=== PATIENT | male | born 1970 | race Caucasian/White ===

== ENCOUNTER 2022-06-12 10:04 | Inpatient (IN) | payer OTHER, SELFPAY ==
[2022-06-12] VITALS (19 sets, daily range): BP systolic 102–129; BP diastolic 66–87; PULSE 59–79; RESP 12–20; TEMP 36.2–36.8; O2SAT 97–100; BMI 29.1
--- NOTE | 2022-06-12 | ECHO_ITS ---
Patient Info Name: Linwood Persaud Age: 52 years : 1970 Gender: Male Ht: 68 in Wt: 193 lbs BSA: 2.07 m2 HR: 57 bpm BP: 125 / 82 mmHg Heart Rhythm: Sinus Rhythm Exam Date: 06/12/2022 2:47 PM Exam Location: [facility] Pulmonary Patient Status: Inpatient Admit Date: 06/12/2022 Staff Ordering Physician: John Beyer MD Back Roll Lathe Operator: Morgan Interiano, LAYLA, RT Attending Provider: Maxi Manzano MD Referring Physician: Pepito LÓPEZ; Exam Type: CA echo doppler w bubble study Study Info Indications - CVA Complete two-dimensional, color flow and Doppler transthoracic echocardiogram is performed. Strain analysis performed. Summary 1. Complete two-dimensional, color flow and Doppler transthoracic echocardiogram is performed. Left Ventricle Left ventricular chamber dimension is normal. Left ventricular systolic function is normal, estimated at 60-65%. There is mild concentric increased left ventricular wall thickness. The left ventricular diastolic function is grade I diastolic dysfunction. Right Ventricle Right ventricular chamber dimension is normal. Left Atria Left atrial chamber dimension is normal. Right Atria Right atrial chamber dimension is mildly enlarged. Atrial Septum Suspected patent foramen ovale visualized by agitated saline imaging. Aortic Valve The aortic valve is trileaflet. There is trace aortic valve regurgitation. Pulmonic Valve The pulmonic valve is normal. There is trace pulmonic regurgitation. Mitral Valve The mitral valve has normal leaflets. Tricuspid Valve The tricuspid valve leaflets are normal. Pericardium/Pleural The pericardium appears normal. Aorta The aortic root size at the sinus of Valsalva is normal. Left Ventricular Outflow Tract Name Value Normal LVOT 2D LVOT Diameter 2.2 cm LVOT Doppler LVOT Peak Gradient 5 mmHg LVOT Mean Gradient 3 mmHg LVOT VTI 24 cm LVOT VTI/AV VTI Ratio 0.9 LVOT Stroke Volume 92 ml LVOT CO 4.4 l/min LVOT CI 2.1 l/min/m2 Mitral Valve Name Value Normal MV Doppler MV Decel Stoddard 162 cm/s2 MV PHT 60 ms MV Area (PHT) 3.7 cm2 4.0-5.0 MV Diastolic Function MV E Peak Velocity 33 cm/s MV A Peak Velocity 38 cm/s MV E/A 0.9 MV Decel Time 206 ms MV Annular TDI MV E/e'
--- NOTE | ~2022-06-12 | US_ITS ---
Procedure: Duplex Doppler examination of the bilateral carotids. Indication: CVA Technique: Real time, color-flow and pulse wave Doppler examination of the bilateral carotids was performed. Findings: Jules scale ultrasonography of the right neck demonstrated no significant plaque. There was demonstrat ion of normal color-flow and Doppler waveforms within the right common, internal and external carotid arteries. The peak systolic velocities in the right common, internal and external carotid arteries w ere demonstrated to be 122 cm/sec, 87 cm/sec and 158 cm/sec respectively. The right ICA/CCA ratio was 0.7.The proximal right internal carotid artery demonstrates 0% stenosis relative to the normal dista l artery lumen diameter. Jules scale sonography of the left neck demonstrated no significant plaque. There was demonstration of normal color-flow and wave forms within the left common, internal and external carotid arteries. The peak systolic velocities in the left common, internal and external carotid arteries were demonstrate d to be 151cm/sec, 135 cm/sec and 192 cm/sec respectively. The left ICA/CCA ratio was 1.0. The proxim al left internal carotid artery demonstrates 0% stenosis relative to the normal distal artery lumen d iameter. There was antegrade flow demonstrated in the bilateral vertebral arteries. Impression: No hemodynamically significant stenosis of the bilateral internal carotid arteries. Antegrade flow in the bilateral vertebral arteries. Note: The methodology used is an indirect measurement validated against a direct method (such as the NASCET criteria) that compares diameters at the stenosis to the distal ICA. Reviewed, dictated and finalized at [facility]. Impression: No hemodynamically significant stenosis of the bilateral internal carotid arter ies. Antegrade flow in the bilateral vertebral arteries. Note: The methodology used is an indirect measurement validated against a direct meth od (such as the NASCET criteria) that compares diameters at the stenosis to the distal ICA.
--- NOTE | ~2022-06-12 | MR_ITS ---
EXAMINATION: MR brain/brain stem wo/w con DATE: 06/12/2022 12:59 INDICATION: Cerebrovascular accident. Left facial weakness. TECHNIQUE: Magnetic resonance imaging (MRI) of the brain and brainstem was performed without and with 18 mL MultiHance intravenous contrast. COMPARISON: Brain MRI 09/19/2010, head CT 06/12/2022 FINDINGS: There is a small acute infarct in the right thalamus characterized by decreased ADC and mil dly increased T2-weighted signal intensity. There is no intracranial hemorrhage or abnormal mass lesi on. The ventricles are normal in size. The paranasal sinuses are clear. The orbits are normal. The ma stoid air cells are normal. IMPRESSION: 1. Small acute infarct in the right thalamus. Reviewed, dictated and finalized at location A.
--- NOTE | ~2022-06-12 | CT_ITS ---
EXAMINATION: CTA brain carotid DATE: 06/12/2022 10:49 INDICATION: Slurred speech. TECHNIQUE: Computed tomographic angiography (CTA) of the head was performed without and with 200 mL O mnipaque-350 intravenous contrast. CTA of the neck was performed with intravenous contrast. Automated exposure control and iterative reconstruction technique were employed. The dose-length product was 1 869.29 mGy-cm. Maximum intensity projection and volume rendered 3D-reconstructions were created by azalea cain technologist on a separate workstation. COMPARISON: None. FINDINGS: HEAD CTA: There is no intracranial hemorrhage, acute infarction, or abnormal intracranial mass lesion . The ventricles are normal in size. There is mild mucosal thickening in the paranasal sinuses. The m astoid air cells are normal. The orbits are normal. The vertebral arteries are codominant. There is n o significant stenosis of basilar artery or the posterior cerebral arteries. The posterior communicat ing arteries are normal. There is no significant stenosis of the intracranial internal carotid arteri es or anterior or middle cerebral arteries. Anterior communicating artery is normal. There is no aneu rysm. There are reconstruction plate involving the facial bones bilaterally. NECK CTA: There are no pathologically enlarged lymph nodes. There is no significant stenosis of the v ertebral arteries. There is no visible plaque in the proximal internal carotid arteries. There is 0% stenosis of the proximal right internal carotid artery relative to normal distal artery lumen diamete r (NASCET criteria). There is 0% stenosis of the proximal left internal carotid artery relative to no rmal distal artery lumen diameter. IMPRESSION: 1. Normal brain. No aneurysm or significant intracranial arterial stenosis. 2. 0% stenosis of the proximal internal carotid arteries relative to normal distal artery lumen diame ters (NASCET criteria). Reviewed, dictated and finalized at location A. IMPRESSION: 1. Normal brain. No aneurysm or significant intracranial arterial stenosis. 2. 0% stenosis of the proximal internal carotid arteries relative to normal dis chito artery lumen diameters (NASCET criteria).
--- NOTE | ~2022-06-12 | XR_ITS ---
EXAMINATION: XR chest 1V portable DATE: 06/12/2022 11:46 INDICATION: Cerebral vascular accident. TECHNIQUE: A single frontal view of the chest was obtained. COMPARISON: None. FINDINGS: The chest demonstrates clear lungs without pneumonia, pleural effusion, or pneumothorax. Th e heart size is normal. IMPRESSION: 1. No acute cardiopulmonary disease. Reviewed, dictated and finalized at location A.
--- NOTE | 2022-06-12 10:10 | ECG_ITS ---
Measurements Intervals [place] Rate: 66 P: 34 MI: 176 QRS: 2 QRSD: 101 T: 8 QT: 386 QTc: 407 Interpretive Statements SINUS RHYTHM BASELINE ARTIFACT- I, II, III, AVR NORMAL ECG NO PREVIOUS ECG AVAILABLE FOR COMPARISON Electronically Signed On 06-12-2022 13:40:47 CDT by Carroll Aquino D.O.
--- NOTE | 2022-06-12 10:30 | ED.NEUROSD ---
HPI - Neuro Symptoms/Deficit General Chief Complaint: Suspected CVA Stated Complaint: woke up with stroke symptoms Time Seen by Provider: 06/12/22 10:14 History of Present Illness HPI Narrative: Patient is a 52-year-old male who presents ER with concerns for strokelike symptoms. Last known well was 3 AM this morning. He then went to bed. Woke up at 8:30 AM. Since waking up she has been having left-sided weakness in his face. If he tries to drink fluid falls out of his mouth. He also reports he has had trouble seeing since waking up as he feels like his vision is either blurred or double. Denies any absent vision. He reports when he ambulates he is falling to his right side. He has mild speech disturbance. No focal weakness of an arm or leg. No history of CVA. He is on no blood thinners. Patient reports his vision improves when he closes 1 eye or the other but it is worsened when both eyes are open. Related Data Allergies Allergy/AdvReac Type Severity Reaction Status Date / Time No Known Allergies Allergy Verified 06/12/22 11:08 Review of Systems Review of Systems: All systems reviewed & are unremarkable except as noted in HPI and below Constitutional: Constitutional: Denies chills and Denies fever(s) Eyes: Eyes: Denies blind spots, Reports blurry vision and Denies loss of peripheral vision Cardiovascular: Cardiovascular: Denies chest pain and Denies radiating jaw, neck or arm pain Gastrointestinal: Gastrointestinal: Denies abdominal pain, Denies nausea and Denies vomiting Musculoskeletal: Musculoskeletal: Reports abnormal gait and Denies joint swelling Neurologic: Reports Abnormal speech present, Reports abnormal gait, Denies headache(s), Reports lack of coordination and Reports focal weakness (Left facial droop) [facility] Past Medical History Medical History (Updated 06/12/22 @ 14:06 by John Beyer MD) Anxiety Hematoma and contusion Resolving s/p intramuscular injection Hypogonadism in male Insomnia Long-term current use of testosterone replacement therapy Sleep disorder Surgical History Surgical History (Updated 06/12/22 @ 14:00 by Darling Rodriguez NP) H/O oral surgery H/O shoulder surgery Right 02/2021 History of nasal surgery Family History Family History (Updated 06/12/22 @ 14:01 by Darling Rodriguez NP) Mother Heart disease CHF Father Cerebrovascular accident Acute myocardial infarction Heart disease Parkinsons disease Social History Social History Social History: 4 c [employer] 2-3 times a week Smoking status: Never smoker Alcohol intake: current Alcohol use details: socially Exam Narrative: GENERAL: Well-appearing, well-nourished, and in no acute distress. HEAD: Normocephalic, atraumatic. EYES: PERRL and EOMI. ENT: Mucous membranes moist. Normal posterior oropharynx. NECK: Supple. No carotid bruit. CHEST: Clear to auscultation. No respiratory distress. HEART: Regular rate and rhythm. Normal peripheral pulses. ABDOMEN: Soft, nontender, nondistended. EXTREMITIES: Normal range of motion. No edema. SKIN: Warm, dry, no rash. NEURO: Alert and oriented x3. Left facial weakness. Mild dysarthria. Difficulty with finger-nose testing in the right upper extremity. Slight pronation of left upper extremity. No lower extremity drift. No sensory deficit to the face or extremities. Patient reports blurred vision but no loss of vision. PSYCH: Normal mood and affect. Course Course Emergency Course: I been in contact with the stroke team at [facility] regarding the patient's symptoms. Patient's history would indicate he is outside of the window for tPA however there is a small chance hyperacute MRI may allow patient to receive tPA. I discussed with radiology possibility of obtaining MRI which we can. Unfortunately MRI shows the infarct in both the diffusion study and the flair study. Due to this
[2022-06-12 10:32] LABS: Estimated CRCL calculation 61 ml/min; Estimated Glomerular Filt Rate > 60
[2022-06-12 10:59] LABS: Glucose Point of Care 89 mg/dl (65-105)
[2022-06-12 11:03] LABS: Basophils Percent Auto 0.7 % (0.2-1.2); Eosinophils Absolute Auto 0.3 K/mm3 (0-0.3); Eosinophils Percent Auto 5.7 % (0-4.4); Hematocrit 43.9 % (42.0-52.0); Hemoglobin 15.1 g/dL (14.0-18.0); Immature Granulocyte Absolute 0.01 K/mm3 (0.00-0.031); Immature Granulocyte Percent A 0.2 % (0-0.5); Lymphocytes Absolute Auto 1.36 K/mm3 (0.9-3.2); Lymphocytes Percent Auto 31.2 % (18.3-44.2); Mean Corpuscular HGB Conc 34.4 g/dl (32-36); Mean Corpuscular Hemoglobin 31.3 pg (26-34); Mean Corpuscular Volume 90.9 fl (80-100); Mean Platelet Volume 9.5 fl (7.4-10.4); Monocytes Absolute Auto 0.4 K/mm3 (0.1-0.6); Monocytes Percent Auto 8.5 % (2.6-8.5); Neutrophils Absolute Auto 2.3 K/mm3 (1.3-6.7); Neutrophils Percent Auto 53.7 % (45.5-73.1); Platelet Count Result 220 k/mm3 (150-375); Red Blood Count 4.83 M/mm3 (4.6-6.20); Red Cell Distribution Width 12.5 % (11.5-14.5); White Blood Count 4.4 K/mm3 (4.5-10.0)
[2022-06-12 11:12] LABS: INR 1.1; Prothrombin Time 13.5 Seconds (11.1-14.7)
[2022-06-12 11:13] LABS: Partial Thromboplastin Time 27.7 SECONDS (22.3-36.8)
[2022-06-12 11:14] LABS: Alanine Aminotransferase 32 U/L (6-50); Albumin Level 3.8 g/dL (3.5-5.1); Alkaline Phosphatase 45 U/L (38-126); Anion Gap 3 mmol/L (8-16); Aspartate Amino Transferase 34 U/L (17-59); Bilirubin,Total 0.7 mg/dL (0.2-1.3); Blood Urea Nitrogen 20 mg/dL (9-20); Calcium 8.5 mg/dL (8.4-10.2); Carbon Dioxide 30 mmol/L (22-30); Chloride 100 mmol/L (98-107); Estimated CRCL calculation 66 ml/min; Estimated Glomerular Filt Rate > 60; Glucose 89 mg/dL (65-110); Sodium 133 mmol/L (137-145)
[2022-06-12 11:25] LABS: Troponin I < 0.012 ng/mL (0.000-0.034)
--- NOTE | 2022-06-12 12:02 | PC.NURSE ---
RN performs a the pre MRI screening and pt changes into underwear and gown on own power without issues. Pt then voids and is ready for MRI.
[2022-06-12] MEDS: ASPIRIN 81 MG CHEWABLE TABLET 324 MG PO (13:21)
--- NOTE | 2022-06-12 13:58 | PM.IMHP ---
H&P: HPI History of Present Illness Date/Time: 06/12/22 13:58 Chief Complaint: Suspected CVA Narrative: This is a 52-year-old male patient who has no significant medical history except for sleep walking. The patient came in to be evaluated for stroke-like symptoms today. The last known normal was around 3:00 a.m. this morning. This is when he went to bed. He woke up at 8:30 a.m. this morning. He noticed some left-sided weakness on his face and he was having difficulty drinking fluid as it was just falling out of his mouth. The patient was having difficulty with his vision today. His vision was blurred and he could not read. If he covered 1 eye he was able to read. The patient stated that he did not have double vision. No history of CVA. He has no prescribed anticoagulation. The patient was also having slurred speech. Chest x-ray was read as no acute cardiopulmonary disease. Head neck CTA was read as?Normal brain. No aneurysm or significant intracranial arterial stenosis. 2. 0% stenosis of the proximal internal carotid arteries relative to normal distal artery lumen diameters (NASCET criteria). Brain MRI was read as small acute infarct in the right thalamus. Neurology has been consulted. The patient was given aspirin. The patient was admitted to inpatient status on the date of service of 06/12/2022 Review of Systems Review of Systems: All systems reviewed & are unremarkable except as noted in HPI and below Constitutional: Constitutional: Reports as per HPI and Reports no additional constitutional complaints Eyes: Eyes: Reports as per HPI and Reports no additional eye complaints ENT: Reports system reviewed and no additional complaints, except as documented and Reports Normal hearing present Cardiovascular: Cardiovascular: Reports no additional cardiovascular complaints Respiratory: Respiratory: Reports no additional respiratory complaints and Reports no additional respiratory complaints Gastrointestinal: Gastrointestinal: Reports as per HPI and Reports no additional gastrointestinal complaints Musculoskeletal: Musculoskeletal: Reports no additional musculoskeletal complaints Integumentary/Breasts: Skin/Breast: Reports system reviewed and no additional complaints, except as docu and Reports as per HPI Neurologic: Reports system reviewed and no additional complaints, except as documented, Reports as per HPI and Reports Normal hearing present Psychiatric: Psychiatric: Reports no additional psychiatric complaints and Reports as per HPI Endocrine: Endocrine: Reports no additional endocrine complaints Hematologic/Lymphatic: Hematologic/Lymphatic: Reports no additional hematologic/lymphatic complaints Allergic/Immunologic: Allergic/Immunologic: Reports no additional allergic/immunologic complaints [facility] Past Medical History Medical History Anxiety Hematoma and contusion Resolving s/p intramuscular injection Hypogonadism in male Insomnia Long-term current use of testosterone replacement therapy Sleep disorder Surgical History Surgical History H/O oral surgery H/O shoulder surgery Right 02/2021 History of nasal surgery Family History Family History Mother Heart disease CHF Father Cerebrovascular accident Acute myocardial infarction Heart disease Parkinsons disease Social History Social History (Updated 06/12/22 @ 16:17 by Darling Rodriguez NP) Social History: He is and has 4 children. 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 He drinks alcohol approximately 3-4 times a week. 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 Code status full code Smoking status: Never smoker Alcohol intake: current Drinks per week: 3 Alcohol use details: socially Substance use type: does not use Lack of Transportation: No [place]
--- NOTE | 2022-06-12 15:07 | PC.NURSE ---
Pt is reapplied to heart monitor after ultra sound is finished. Pt requested a meal and RN brings pt a sandwich and water. Pt's facial droop and weakness on the left side have improved. Pt has no complaints at this time. RN leaves call light with pt.
--- NOTE | 2022-06-12 15:25 | ADMGEN ---
This patient, Linwood Persaud, was admitted to Medical Room 253-01. Patient/family oriented to hospital policies and general routines including ID bracelet, bed and alarms, visiting hours, pain management, procedures, bathroom and other care routines, personal items, smoking policy, room service/diet, and visiting hours. Information on how to activate the Rapid Response Team has been discussed. Patient/Family are encouraged to report perceived risks to care and to ask questions if they do not understand what they are told or what they should do.
[2022-06-12] MEDS: clonazePAM (*CRX) 0.5 MG TABLET 1.5 MG PO (22:59)
[2022-06-13] VITALS (7 sets, daily range): BP systolic 112–122; BP diastolic 64–75; PULSE 72–82; RESP 19–20; TEMP 36.3–36.9; O2SAT 98–99
[2022-06-13 05:40] LABS: Basophils Absolute Auto 0.1 K/mm3 (0.0-0.1); Basophils Percent Auto 0.8 % (0.2-1.2); Eosinophils Absolute Auto 0.4 K/mm3 (0-0.3); Eosinophils Percent Auto 5.7 % (0-4.4); Hematocrit 45.6 % (42.0-52.0); Hemoglobin 15.5 g/dL (14.0-18.0); Immature Granulocyte Absolute 0.01 K/mm3 (0.00-0.031); Immature Granulocyte Percent A 0.2 % (0-0.5); Lymphocytes Absolute Auto 2.57 K/mm3 (0.9-3.2); Lymphocytes Percent Auto 39.4 % (18.3-44.2); Mean Corpuscular Volume 91.2 fl (80-100); Mean Platelet Volume 9.8 fl (7.4-10.4); Monocytes Absolute Auto 0.6 K/mm3 (0.1-0.6); Monocytes Percent Auto 8.4 % (2.6-8.5); Neutrophils Percent Auto 45.5 % (45.5-73.1); Platelet Count Result 245 k/mm3 (150-375); Red Cell Distribution Width 12.4 % (11.5-14.5); White Blood Count 6.5 K/mm3 (4.5-10.0)
[2022-06-13 06:00] LABS: Alanine Aminotransferase 34 U/L (6-50); Albumin Level 3.8 g/dL (3.5-5.1); Alkaline Phosphatase 46 U/L (38-126); Anion Gap 5 mmol/L (8-16); Aspartate Amino Transferase 35 U/L (17-59); Bilirubin,Total 0.5 mg/dL (0.2-1.3); Blood Urea Nitrogen 17 mg/dL (9-20); Calcium 8.6 mg/dL (8.4-10.2); Carbon Dioxide 30 mmol/L (22-30); Chloride 102 mmol/L (98-107); Estimated CRCL calculation 80 ml/min; Estimated Glomerular Filt Rate > 60; Glucose 94 mg/dL (65-110); Magnesium 1.9 mg/dL (1.6-2.3); Sodium 137 mmol/L (137-145)
[2022-06-13 06:46] LABS: Thyroid Stimulating Hormone Reflex 0.613 uIU/mL (0.465-4.68)
[2022-06-13] MEDS: ASPIRIN 81 MG ENTERIC TABLET PO (08:05)
[2022-06-13 08:13] LABS: Cholesterol 168 mg/dL (0-200); HDL Direct 36 mg/dL; Triglycerides 102 mg/dL (<150)
[2022-06-13 08:24] LABS: LDL Cholesterol Direct 101 mg/dL
--- NOTE | 2022-06-13 08:59 | WPDNEURCNPN ---
Assessment and Plan Assessment and plan (1) Acute CVA (cerebrovascular accident): Code(s): I63.9 - Cerebral infarction, unspecified Status: Acute (2) Hyperlipidemia: Code(s): E78.5 - Hyperlipidemia, unspecified Status: Acute Plan Linwood Persaud is a 52 year old male with a history of anxiety and hypogonadism presenting due to concerns for stroke. He presented with left facial droop. Found to have right thalamic infarct. Other than hyperlipidemia, he does not have any other obvious risk factors for stroke. However, there is family history of genetic hyperocoagulability. - Will check hypercoag labs - Surface echo is pending - Take aspirin 81mg daily, add Plavix for 3 weeks - Continue Lipitor 40mg daily Consult date: 06/13/22 Reason for consult: Stroke HPI: Linwood Persaud is a 52 year old male with a history of anxiety and hypogonadism presenting due to concerns for stroke. Patient's last known well was on 06/12 at 3AM, which is when he went to sleep. When he woke up at 830AM, he noted weakness of the left side of his face, as well as vision changes and falling to the right side. When he presented to [place] ED, he was in sinus rhythm. His blood pressure has been within normal range. CT head was negative for acute process and CTA brain/carotid was negative for stenosis or occlusion. Case was discussed with [facility] Neurology who recommend hyperacute MRI to see if patient would be tPA candidate -- however, acute infarct was noted in both the diffusion and flair sequences. Therefore, patient was not a candidate for tPA. MRI brain showed acute stroke in the right thalamus. Patient's LDL is 101. He was started on aspirin and Lipitor 40mg daily. Patient reports a family history of clotting disorder in remote family members (lipoprotein A). Patient does not smoke and is quite active. He has no complaints today other than a mild headache. He is back to his baseline. Review of Systems Constitutional: Constitutional: Reports no additional constitutional complaints Eyes: Eyes: Reports blurry vision ENT: Reports system reviewed and no additional complaints, except as documented Cardiovascular: Cardiovascular: Reports no additional cardiovascular complaints Respiratory: Respiratory: Reports no additional respiratory complaints Gastrointestinal: Gastrointestinal: Reports no additional gastrointestinal complaints Genitourinary: Genitourinary: Reports no additional male genitourinary complaints Musculoskeletal: Musculoskeletal: Reports no additional musculoskeletal complaints Integumentary/Breasts: Skin/Breast: Reports system reviewed and no additional complaints, except as docu Neurologic: Reports as per HPI Psychiatric: Psychiatric: Reports no additional psychiatric complaints PMFSH Past Medical History Medical History Anxiety Hematoma and contusion Resolving s/p intramuscular injection Hypogonadism in male Insomnia Long-term current use of testosterone replacement therapy Sleep disorder Surgical History Surgical History H/O oral surgery H/O shoulder surgery Right 02/2021 History of nasal surgery Family History Family History Mother Heart disease CHF Father Cerebrovascular accident Acute myocardial infarction Heart disease Parkinsons disease Social History Social History Social History: He is and has 4 children. 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 He drinks alcohol approximately 3-4 times a week. 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 Code status full code Smoking status: Never smoker Alcohol intake: current Drinks per week: 3 Alcohol use details: socially Substance use type: does not use Lack of Transportation: No Lack of Food: Never T
--- NOTE | 2022-06-13 09:07 | PCPTNOTE ---
Pt and RN report pt being independent in the hallway/room. Hospitalist in agreement in cancelling PT/OT orders. RN aware
[2022-06-13] MEDS: ATORVASTATIN 40 MG TABLET PO (09:11)
--- NOTE | 2022-06-13 12:31 | PM.DS ---
DS: Admitting Diagnosis Discharge Date 06/13/22 Admitting Diagnosis CVA DS: Discharge Diagnosis Discharge Diagnosis (1) Acute CVA (cerebrovascular accident): Code(s): I63.9 - Cerebral infarction, unspecified Status: Acute (2) Sleep disorder: Code(s): G47.9 - Sleep disorder, unspecified Status: Acute (3) Hypogonadism in male: Code(s): E29.1 - Testicular hypofunction Status: Acute DS: Summary Hospital Course Reason for hospitalization: CVA Hospital Course: This is a 52-year-old male with history of anxiety and hypogonadism taking testosterone presenting to the ED with chief complaint of facial drooping, slurred speech and left-sided blurred vision. CTA of the head and neck revealed no aneurysm or significant intracranial artery stenosis with 0% stenosis of the proximal internal carotid arteries. MRI performed revealed small acute infarct in the right thalamus. Neurology consulted and recommend patient be started on the new Lipitor 40 mg, Plavix for 3 weeks and aspirin 81 mg. Carotid Dopplers with 0% stenosis. Echocardiogram. patient does have family history of genetic hypercoagulability and hypercoagulable panel has been ordered. Patient high lipid panel revealed LDL of 101. patient is back to baseline with only complaint being mild headache. I have discussed this case with Neurology and they have cleared patient for discharge. Advised patient follow-up with neurology regarding hypercoagulability labs. Time Spent with Patient Time attestation: Total time spent providing and/or coordinating discharge services: Exam Narrative: GENERAL: Comfortable, no acute distress HENMT: moist mucous membranes EYES: EOM intact b/l NECK: no lymphadenopathy RESPIRATORY: clear to auscultation CARDIO: RRR GI: soft, nontender, bowel sounds present SKIN: no rashes EXTREMITIES: no edema, redness or tenderness NEURO: face is symmetric, upper and lower extremity strength 5/5 bilaterally, normal speech DS: Data Data Completed and Pending Labs on day of discharge: Labs from last 24 hours 06/13/22 06/13/22 06/13/22 05:07 05:07 05:07 WBC 6.5 RBC 5.00 Hgb 15.5 Hct 45.6 MCV 91.2 MCH 31.0 MCHC 34.0 RDW 12.4 Plt Count 245 MPV 9.8 Immature Gran % (Auto) 0.2 Neut % (Auto) 45.5 Lymph % (Auto) 39.4 Cache % (Auto) 8.4 Eos % (Auto) 5.7 H Baso % (Auto) 0.8 Lymph # (Auto) 2.57 Cache # (Auto) 0.6 Eos # (Auto) 0.4 H Baso # (Auto) 0.1 Abs Immat Gran (auto) 0.01 Absolute Neuts (auto) 3.0 Absolute Nucleated RBC 0.0 Nucleated RBC % 0.0 Sodium 137 Potassium 4.0 Chloride 102 Carbon Dioxide 30 Anion Gap 5 L BUN 17 Creatinine 0.90 Estim Creat Clear Calc 80 Estimated GFR > 60 Glucose 94 Calcium 8.6 Magnesium 1.9 Total Bilirubin 0.5 AST 35 ALT 34 Alkaline Phosphatase 46 Total Protein 6.0 L Albumin 3.8 Triglycerides Cholesterol LDL Cholesterol Direct HDL Direct TSH (Reflex) 0.613 06/13/22 05:05 WBC RBC Hgb Hct MCV MCH MCHC RDW Plt Count MPV Immature Gran % (Auto) Neut % (Auto) Lymph % (Auto) Cache % (Auto) Eos % (Auto) Baso % (Auto) Lymph # (Auto) Cache # (Auto) Eos # (Auto) Baso # (Auto) Abs Immat Gran (auto) Absolute Neuts (auto) Absolute Nucleated RBC Nucleated RBC % Sodium Potassium Chloride Carbon Dioxide Anion Gap BUN Creatinine Estim Creat Clear Calc Estimated GFR Glucose Calcium Magnesium Total Bilirubin AST ALT Alkaline Phosphatase Total Protein Albumin Triglycerides 102 Cholesterol 168 LDL Cholesterol Direct 101 HDL Direct 36 TSH (Reflex) Discharge Plan Discharge Attending physician on discharge: Aashish Castrejon Consulting providers: Danielle Gonzalez Discharging Clinician: Nimisha Laird Patient Disposition: Home, Self-Care Activity:
[2022-06-17 12:43] LABS: Homocysteine 8.3 umol/L (<11.4)
[2022-06-17 21:27] LABS: Antithrombin III Activity 124 % normal (80-135)
[2022-06-18 05:26] LABS: Anti Cardio Antibody IgM 2.5 MPL-U/mL (<20.0); Anti Cardiolipin Antibody IgA <2.0 APL-U/mL (<20.0); Anti Cardiolipin Antibody IgG <2.0 GPL-U/mL (<20.0)
[2022-06-19 04:03] LABS: Lupus dRVVT Screen 35 sec (<=45); PTT-LA Screen 30 sec (<=40)
[2022-06-21 23:26] LABS: Factor V (Leiden) Mutation NEGATIVE
[2022-06-23 06:51] LABS: Lipoprotein A 226 nmol/L (<75)
== END 2022-06-13 16:52 | disposition home or self-care (01) | DRG 66 ==
LOC: ANHED 10:59 → ANH2MED 14:06
PROVIDERS: Nurse Practitioner; Student in an Organized Health Care Education/Training Program; Admitting Provider Family Medicine; Emergency Provider Emergency Medicine; PCP Internal Medicine; Visit Provider Internal Medicine Critical Care Medicine
DX: I63.9 Cerebral infarction, unspecified (principal); R47.81 Slurred speech; R29.810 Facial weakness; H53.8 Other visual disturbances; R29.704 NIHSS score 4; G47.9 Sleep disorder, unspecified; E29.1 Testicular hypofunction; F41.9 Anxiety disorder, unspecified; E78.5 Hyperlipidemia, unspecified
CPT/HCPCS: 36415; 70496; 70498; 70553; 71045; 80053; 80061; 81240; 81241; 82948; 83090; 83695; 83735; 84443; 84484; 85025; 85300; 85303; 85306; 85610; 85613; 85730; 86146; 92522; 93005; 93306; 93880; 96375; 99285; A9270; A9577; Q9967

== ENCOUNTER 2022-09-09 01:19 | Day surgery (SDC) | payer OTHER, SELFPAY ==
[2022-09-08 12:57] VITALS: BMI 29.1
[2022-09-09] VITALS (10 sets, daily range): BP systolic 106–131; BP diastolic 50–87; PULSE 63–70; RESP 10–18; TEMP 36.4; O2SAT 97–100; BMI 29.1
--- NOTE | 2022-09-09 10:47 | WPDHPUPDATE1 ---
History and Physical Update Update Date/Time: 09/09/22 10:47 History and Physical has been reviewed, including an updated exam of the patient. There are NO changes in the patient's condition. Risks, benefits, and alternatives have been discussed and questions answered. Patient agrees to proceed with procedure.
--- NOTE | 2022-09-09 10:47 | WPDMODSED ---
Moderate Sedation Note-Pt Data Patient Data Diagnosis: CVA, PFO Present Complaint: PFO Procedure to be performed/Plan: Transesophageal Echocardiogram Allergies Allergy/AdvReac Type Severity Reaction Status Date / Time No Known Allergies Allergy Verified 09/09/22 09:27 Home Medications Medication Instructions Recorded Confirmed Type syringe with needle 3 mL 21 gauge #12 ea 01/21/22 06/12/22 Rx x 1 (BD Luer-Anders Syringe) aspirin 81 mg tablet,delayed 81 mg PO QAM #90 tabs 06/13/22 09/08/22 Rx release clonazepam 1 mg tablet 1.5 mg PO QHS #135 tabs 07/31/22 09/08/22 Rx testosterone enanthate 200 mg/mL 200 mg IM WEEKLY #13 mL 07/31/22 09/08/22 Rx intramuscular oil Co Q-10 1 tab-cap PO DAILY 08/26/22 09/08/22 History atorvastatin 80 mg tablet 40 mg PO HS 08/26/22 09/08/22 History multivitamin 1 tablet PO DAILY 08/26/22 09/08/22 History niacin 1 tab-cap PO Q12H 08/26/22 09/08/22 History omega-3 fatty acids-vitamin E 4 cap PO DAILY 08/26/22 09/08/22 History 1,000 mg capsule Sedation/Anesthesia: No previous sedation/anesthesia problems (including family history). [facility] Past Medical History Medical History Anxiety Hematoma and contusion Resolving s/p intramuscular injection Hypogonadism in male Insomnia Long-term current use of testosterone replacement therapy Sleep disorder Surgical History Surgical History H/O oral surgery H/O shoulder surgery Right 02/2021 History of nasal surgery Family History Family History Mother Heart disease CHF Father Cerebrovascular accident Acute myocardial infarction Heart disease Parkinsons disease Social History Social History Social History: He is and has 4 children. 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 He drinks alcohol approximately 3-4 times a week. His is the durable power compliance attorney for healthcare. Code status full code Smoking packs per day: 0 Smoking cigarettes per day: 0.0 Smoking status: Never smoker Alcohol intake: current Drinks per week: 8 Alcohol use details: approx 8 drinks per week. Substance use: never Substance use type: does not use Lack of Transportation: No Lack of Food: Never True Current Housing: I Have Housing Concerned About Future Housing: No Difficulty Paying Gas/Electric Bills: No Difficulty Paying for Meds: No Currently Unemployed: No Education: Bachelor's Degree Difficulty w/ Childcare or Family Care: No Living arrangements: with family Additional living arrangements comments: lives w/ and kids Spiritual care concerns: No Mod Sed Physical Exam Physical Exam Pre Procedural Exam: Normal: Appearance, Lungs, Heart Rate, Heart Rhythm, Neuro Exam, Abdomen, Extremities and Skin Hours since solid foods: 12 Hours since liquid intake: 8 Mallampati Classification: class III Internal Medicine - PN: Obj Da Vital Signs Vital Signs: Vital Signs - 24 hr 09/09/22 09:29 09/09/22 10:15 09/09/22 10:20 Temperature 36.4 C Pulse Rate 70 65 67 Respiratory Rate 18 12 11 L Blood Pressure 115/79 119/87 120/78 Pulse Oximetry 98 100 100 Oxygen Delivery Room Air Nasal Cannula Nasal Cannula Oxygen Flow Rate 3 3 09/09/22 10:25 09/09/22 10:30 09/09/22 10:35 Temperature Pulse Rate 65 64 63 Respiratory Rate 12 11 L 10 L Blood Pressure 114/70 115/75 106/83 Pulse Oximetry 97 99 99 Oxygen Delivery Nasal Cannula Nasal Cannula Nasal Cannula Oxygen Flow Rate 3 3 3 ASA Classification/Sedation ASA Classification/Sedation ASA Class: II Emergent: No Risks: Risks, benefits and alternatives explained and patient/family accepted plan for sedation. Patient re-evaluated immediately prior to sedation.
--- NOTE | 2022-09-09 10:48 | WPDTEECHO ---
[facility] TransEsophageal Echocardiogram Date of procedure: 09/09/22 Procedure Type: Date of Procedure: 09/09/2022 Brief History Of Present Illness: Patient is a pleasant 52 year old male with a history of CVA who is referred for transesophageal echocardiogram for further evaluation for PFO Procedure In Detail: After verbal and written informed consent was obtained, the patient risks, benefits, and alternatives explained in detail. The patient agreed to proceed with the plan of care as outlined above.?The patient was evaluated at bedside in [facility].?The posterior oropharynx, neck, and jaw angle all within normal limits on examination. Lungs were clear to auscultation. See pre-sedation note for further details. The patient was then placed in the appropriate 30 to 45 degree angle supine position at a slight left lateral decubitus position.?Patient was monitored throughout the study with telemetry, oxygen saturation, end-tidal CO2 monitoring, blood pressure, heart rate, and respirations.? The posterior hypopharynx was then locally anesthetized using repeated administration of Hurricaine spray as well as gargled viscous lidocaine.? After local anesthetic of the posterior hypopharynx was achieved and the oral bite block placed, moderate sedation was administered.? After confirmation of adequate moderate sedation, the transesophageal echocardiogram probe was advanced through the oral bite block into the posterior hypopharynx and into the esophagus easily and without complication.? Multiple, multiplanar echocardiographic images were obtained in multiple standard re- projections.? Pulsed wave, continuous-wave, and color-flow Doppler were utilized in conjunction with this study.? At the conclusion of the study, the transesophageal echocardiogram probe was removed easily and without complication.? The patient tolerated the procedure well without difficulty.? Patient was in sinus rhythm throughout the study. Moderate Sedation/Anesthesia administration: Patient reports no prior problems with sedation/anesthesia. Please see pre-sedation noted for physical examination documentation. As noted above, after adequate local anesthesia of the posterior hypopharynx was achieved, a total of?4mg intravenous Versed, total of 100mcg intravenous Fentanyl, and total of 20mg intravenous Propofol in multiple divided doses was administered for moderate sedation.? Sedation start time was 10:15 and end time was 10:38 for a total intra-service/procedure face-face time of?23 minutes.? Sedation was administered by a qualified/certified observer?Sandie Herr RN under my supervision with intra-procedure [id number]-[id number] observation and management throughout the entirety of the procedure.? There were no other issues or complications and patient tolerated the procedure well. See post-anesthesia documentation. FINDINGS: LEFT VENTRICLE: Size and systolic function were within normal limits without wall motion abnormalities with ejection fraction of 60-65%. RIGHT VENTRICLE:? Size and systolic function within normal limits. LEFT ATRIUM: Normal size. RIGHT ATRIUM: Appears mildly dilated. INTERATRIAL SEPTUM: No evidence of shunt on color Doppler, however, there is a very mild gsdui-xx-ugiu shunt with agitated saline (not visualized on the 120 degree view of the septum, but was noted on the 60 degree view of the septum). This is consistent with a small PFO. MITRAL VALVE: ? Mitral valve is anatomically normal with preserved leaflet excursion and trace regurgitation. AORTIC VALVE: The aortic valve was an anatomically normal 3 leaflet structure with normal leaflet excursion. There is mild aortic regurgitation. TRICUSPID VALVE: The tricuspid valve is anatomically normal with normal leaflet excursion with trivial regurgitation identified.? PULMONIC VALVE: Pulmonic valve is grossly normal. ? LEFT ATRIAL APPENDAGE: Anatomically normal structure with prominent pectinate muscles without throm
== END 2022-09-09 11:41 | disposition home or self-care (01) ==
PROVIDERS: PCP Internal Medicine; Visit Provider Internal Medicine
PROC: (CPT 93312; principal; 2022-09-09 10:00)
DX: Q21.12 Patent foramen ovale (principal); I34.0 Nonrheumatic mitral (valve) insufficiency; Z86.73 Personal history of transient ischemic attack (TIA), and cerebral infarction without residual deficits; F41.9 Anxiety disorder, unspecified; E29.1 Testicular hypofunction; Z79.890 Hormone replacement therapy; Z79.82 Long term (current) use of aspirin
CPT/HCPCS: 93312; 93320; 93325

== ENCOUNTER 2022-10-22 08:29 | Outpatient (CLI) | payer OTHER, SELFPAY ==
[2022-10-22 18:22] LABS: Basophils Absolute Auto 0.1 K/mm3 (0.0-0.1); Basophils Percent Auto 0.9 % (0.2-1.2); Eosinophils Absolute Auto 0.3 K/mm3 (0-0.3); Eosinophils Percent Auto 4.7 % (0-4.4); Hematocrit 48.3 % (42.0-52.0); Hemoglobin 16.5 g/dL (14.0-18.0); Immature Granulocyte Absolute 0.01 K/mm3 (0.00-0.031); Immature Granulocyte Percent A 0.2 % (0-0.5); Lymphocytes Absolute Auto 1.76 K/mm3 (0.9-3.2); Mean Corpuscular HGB Conc 34.2 g/dl (32-36); Mean Corpuscular Hemoglobin 31.7 pg (26-34); Mean Corpuscular Volume 92.9 fl (80-100); Mean Platelet Volume 10.1 fl (7.4-10.4); Monocytes Absolute Auto 0.5 K/mm3 (0.1-0.6); Monocytes Percent Auto 9.9 % (2.6-8.5); Neutrophils Absolute Auto 2.7 K/mm3 (1.3-6.7); Neutrophils Percent Auto 51.3 % (45.5-73.1); Platelet Count Result 224 k/mm3 (150-375); Red Cell Distribution Width 12.5 % (11.5-14.5); White Blood Count 5.3 K/mm3 (4.5-10.0)
[2022-10-22 18:35] LABS: Alanine Aminotransferase 32 U/L (6-50); Albumin Level 4.2 g/dL (3.5-5.1); Alkaline Phosphatase 48 U/L (38-126); Anion Gap 5 mmol/L (8-16); Aspartate Amino Transferase 49 U/L (17-59); Bilirubin,Total 0.9 mg/dL (0.2-1.3); Blood Urea Nitrogen 18 mg/dL (9-20); Calcium 9.2 mg/dL (8.4-10.2); Carbon Dioxide 33 mmol/L (22-30); Chloride 98 mmol/L (98-107); Cholesterol 168 mg/dL (0-200); Estimated Glomerular Filt Rate > 60; Glucose 71 mg/dL (65-110); HDL Direct 40 mg/dL; Potassium 4.3 mmol/L (3.4-5.0); Sodium 136 mmol/L (137-145); Triglycerides 93 mg/dL (<150)
[2022-10-22 18:47] LABS: LDL Cholesterol Direct 96 mg/dL
[2022-10-22 19:07] LABS: Prostate Specific Antigen 0.9 ng/mL (< OR = 4.0)
[2022-10-27 06:48] LABS: Apolipoprotein B 89 mg/dL (<90)
[2022-10-28 06:50] LABS: Testosterone Free 771.5 pg/mL (35.0-155.0); Testosterone Total 2633 ng/dL (250-1100)
[2022-10-29 21:22] LABS: Estradiol, Ultrasensitive 73 pg/mL (< OR = 29)
== END 2022-10-22 08:30 | disposition home or self-care (01) ==
LOC: ANHGOSHLAB 08:31
PROVIDERS: PCP Internal Medicine; Visit Provider Nurse Practitioner
DX: E29.1 Testicular hypofunction (principal); Z98.890 Other specified postprocedural states; Z12.5 Encounter for screening for malignant neoplasm of prostate; Z12.11 Encounter for screening for malignant neoplasm of colon; Z12.12 Encounter for screening for malignant neoplasm of rectum
CPT/HCPCS: 36415; 80053; 80061; 82172; 82670; 84153; 84402; 84403; 85025; G0103

== ENCOUNTER 2022-11-06 08:30 | Outpatient (CLI) | payer OTHER, SELFPAY ==
[2022-11-10 17:28] LABS: Testosterone Free 122.3 pg/mL (35.0-155.0); Testosterone Total 711 ng/dL (250-1100)
[2022-11-11 12:26] LABS: Lipoprotein A 194 nmol/L (<75)
== END 2022-11-06 08:31 | disposition home or self-care (01) ==
PROVIDERS: Student in an Organized Health Care Education/Training Program; PCP Internal Medicine; Visit Provider Internal Medicine
DX: I63.9 Cerebral infarction, unspecified (principal); E29.1 Testicular hypofunction; Z79.890 Hormone replacement therapy
CPT/HCPCS: 36415; 83695; 84402; 84403

== ENCOUNTER 2023-04-28 08:38 | Outpatient (CLI) | payer OTHER, SELFPAY ==
[2023-04-28 11:38] LABS: Appearance Urine Clear (Clear); Bilirubin Urine Negative (Negative); Blood Urine Negative (Negative); Color Urine Yellow (Yellow); Glucose Urine UA Negative (Negative); Ketones Urine Negative (Negative); Leukocyte Esterase Ur Negative LEU/UL (NEGATIVE); Nitrate Urine Negative (Negative); Protein Urine Negative (Negative); Specific Grav Ur 1.004 (1.001-1.035); Urobilinogen Urine 0.2 mg/dL (<2.0); pH Urine 7.5 (5.0-9.0)
[2023-04-28 11:44] LABS: Alanine Aminotransferase 36 U/L (6-50); Albumin Level 4.3 g/dL (3.5-5.1); Alkaline Phosphatase 54 U/L (38-126); Anion Gap 3 mmol/L (8-16); Aspartate Amino Transferase 68 U/L (17-59); Bilirubin,Total 0.9 mg/dL (0.2-1.3); Blood Urea Nitrogen 19 mg/dL (9-20); Calcium 9.5 mg/dL (8.4-10.2); Carbon Dioxide 32 mmol/L (22-30); Chloride 101 mmol/L (98-107); Cholesterol 140 mg/dL (0-200); Estimated Glomerular Filt Rate > 60; Glucose 88 mg/dL (65-110); HDL Direct 46 mg/dL; Potassium 3.9 mmol/L (3.4-5.0); Sodium 136 mmol/L (137-145); Triglycerides 73 mg/dL (<150)
[2023-04-28 11:46] LABS: Basophils Absolute Auto 0.1 K/mm3 (0.0-0.1); Eosinophils Absolute Auto 0.3 K/mm3 (0-0.3); Hematocrit 48.1 % (42.0-52.0); Hemoglobin 16.5 g/dL (14.0-18.0); Immature Granulocyte Absolute 0.05 K/mm3 (0.00-0.031); Lymphocytes Absolute Auto 1.69 K/mm3 (0.9-3.2); Lymphocytes Percent Auto 32.8 % (18.3-44.2); Mean Corpuscular HGB Conc 34.3 g/dl (32-36); Mean Corpuscular Hemoglobin 31.9 pg (26-34); Mean Corpuscular Volume 92.9 fl (80-100); Mean Platelet Volume 10.1 fl (7.4-10.4); Monocytes Absolute Auto 0.6 K/mm3 (0.1-0.6); Monocytes Percent Auto 11.7 % (2.6-8.5); Neutrophils Absolute Auto 2.5 K/mm3 (1.3-6.7); Neutrophils Percent Auto 47.5 % (45.5-73.1); Platelet Count Result 229 k/mm3 (150-375); Red Blood Count 5.18 M/mm3 (4.6-6.20); Red Cell Distribution Width 12.5 % (11.5-14.5); White Blood Count 5.2 K/mm3 (4.5-10.0)
[2023-04-28 11:55] LABS: LDL Cholesterol Direct 77 mg/dL
[2023-04-28 12:11] LABS: Add Urine Microscopic? NO
[2023-04-28 12:35] LABS: Prostate Specific Antigen 0.9 ng/mL (< OR = 4.0)
[2023-05-02 09:49] LABS: Apolipoprotein B 69 mg/dL (<90)
[2023-05-02 11:43] LABS: Testosterone Free 168.1 pg/mL (35.0-155.0); Testosterone Total 899 ng/dL (250-1100)
== END 2023-04-28 08:39 | disposition home or self-care (01) ==
LOC: ANHGOSHLAB 08:39
PROVIDERS: PCP Internal Medicine; Visit Provider Internal Medicine
DX: I48.91 Unspecified atrial fibrillation (principal); I48.92 Unspecified atrial flutter; Z79.01 Long term (current) use of anticoagulants; Z79.890 Hormone replacement therapy; Z12.5 Encounter for screening for malignant neoplasm of prostate; E78.5 Hyperlipidemia, unspecified
CPT/HCPCS: 36415; 80053; 80061; 81003; 82172; 84153; 84402; 84403; 85025; G0103

== ENCOUNTER 2023-10-20 08:20 | Outpatient (CLI) | payer OTHER, SELFPAY ==
[2023-10-20 14:21] LABS: Basophils Percent Auto 0.6 % (0.2-1.2); Eosinophils Absolute Auto 0.3 K/mm3 (0-0.3); Eosinophils Percent Auto 5.7 % (0-4.4); Hemoglobin 16.4 g/dL (14.0-18.0); Immature Granulocyte Absolute 0.01 K/mm3 (0.00-0.031); Immature Granulocyte Percent A 0.2 % (0-0.5); Lymphocytes Absolute Auto 1.53 K/mm3 (0.9-3.2); Lymphocytes Percent Auto 29.3 % (18.3-44.2); Mean Corpuscular HGB Conc 34.2 g/dl (32-36); Mean Corpuscular Hemoglobin 31.8 pg (26-34); Mean Platelet Volume 10.7 fl (7.4-10.4); Monocytes Absolute Auto 0.6 K/mm3 (0.1-0.6); Monocytes Percent Auto 10.9 % (2.6-8.5); Neutrophils Absolute Auto 2.8 K/mm3 (1.3-6.7); Neutrophils Percent Auto 53.3 % (45.5-73.1); Platelet Count Result 221 k/mm3 (150-375); Red Blood Count 5.16 M/mm3 (4.6-6.20); Red Cell Distribution Width 12.3 % (11.5-14.5); White Blood Count 5.2 K/mm3 (4.5-10.0)
[2023-10-20 14:41] LABS: LDL Cholesterol Direct 72 mg/dL
[2023-10-20 15:05] LABS: Alanine Aminotransferase 26 U/L (6-50); Alkaline Phosphatase 53 U/L (38-126); Aspartate Amino Transferase 58 U/L (17-59); Bilirubin,Total 0.6 mg/dL (0.2-1.3); Blood Urea Nitrogen 24 mg/dL (9-20); Calcium 9.4 mg/dL (8.4-10.2); Carbon Dioxide 29 mmol/L (22-30); Estimated Glomerular Filt Rate > 60; Glucose 95 mg/dL (65-110); HDL Direct 46 mg/dL
[2023-10-20 15:30] LABS: Albumin Level 4.3 g/dL (3.5-5.1); Anion Gap 9 mmol/L (4-12); Chloride 99 mmol/L (98-107); Cholesterol 153 mg/dL (0-200); Potassium 4.2 mmol/L (3.4-5.0); Sodium 137 mmol/L (137-145); Triglycerides 96 mg/dL (<150)
[2023-10-25 15:49] LABS: Testosterone Free 54.3 pg/mL (35.0-155.0); Testosterone Total 376 ng/dL (250-1100)
== END 2023-10-20 08:21 | disposition home or self-care (01) ==
LOC: ANHGOSHLAB 08:21
PROVIDERS: PCP Internal Medicine; Visit Provider Internal Medicine
DX: E29.1 Testicular hypofunction (principal); I48.91 Unspecified atrial fibrillation; I48.92 Unspecified atrial flutter; Z79.01 Long term (current) use of anticoagulants; Z79.890 Hormone replacement therapy
CPT/HCPCS: 36415; 80053; 80061; 82728; 84402; 84403; 84443; 85025

== ENCOUNTER 2024-02-09 08:30 | Outpatient (CLI) | payer OTHER, SELFPAY ==
[2024-02-09 12:27] LABS: Free T4 Free Thyroxine 0.92 ng/mL (0.78-2.19)
[2024-02-10 10:13] LABS: Triiodothyronine T3 Free 4.1 pg/mL (2.3-4.2)
[2024-02-14 15:28] LABS: Testosterone Free 170.3 pg/mL (35.0-155.0); Testosterone Total 877 ng/dL (250-1100)
== END 2024-02-09 08:31 | disposition home or self-care (01) ==
LOC: ANHGOSHLAB 08:31
PROVIDERS: PCP Internal Medicine; Visit Provider Nurse Practitioner
DX: R53.83 Other fatigue (principal); E29.1 Testicular hypofunction; Z79.890 Hormone replacement therapy; E55.9 Vitamin D deficiency, unspecified
CPT/HCPCS: 36415; 82306; 82607; 82670; 84402; 84403; 84439; 84481

== ENCOUNTER 2024-07-20 08:45 | Outpatient (CLI) | payer OTHER, SELFPAY ==
--- OUTSIDE RECORDS SUMMARY | 2024-07-20 08:55 | XMS_ITS | Clinical Summary ---
Author Organization [facility] [address] [place] [address] Care Team Providers Care Metal Fabrication Supervisor Name Role Phone Christo García DO Primary Care Provider [phone] Keyon Pham MD Unavailable [phone] Alex Bustos MD Unavailable [phone] Allergies No known active allergies Medications clonazePAM (KlonoPIN) 1 mg tablet Take 1.5 tablets (1.5 mg total) by mouth nightly 1 Active fish oil-E-fatty acid5-ttpa687 400-5 mg-unit capsule Take 3,000 mg by mouth daily Active testosterone enanthate 200 mg/mL injection Inject 1 mL (200 mg total) into the muscle as instructed every 7 days 3 Active yiaigcls-bbt-to ndwqh-P-abew589 (Alive Men's 50 Plus Ultra) 800 mcg DFE- 120 mcg tablet 1 Active BD Luer-Anders Syringe 3 mL 21 gauge x 1 syringe USE TO INJECT TESTOSTERONE ONCE WEEKLY 3 Active cholecalciferol (VITAMIN D-3) 2000 unit capsule 1 capsule (2,000 Units total) daily Active rosuvastatin (CRESTOR) 5 mg tablet Take 1 tablet (5 mg total) by mouth daily 90 tablet 3 4 12/24/19 25 Active rivaroxaban (XARELTO) 20 mg tablet Take 1 tablet (20 mg total) by mouth daily with dinner 90 tablet 3 Active metoprolol XL (TOPROL-XL) 50 mg extended release tablet Take 1 tablet (50 mg total) by mouth daily 90 tablet 1 5 Active Active Problems Problem Noted Date Diagnosed Date Bilateral arm numbness and tingling while sleepi ng 05/03/2024 Chronic anticoagulation 02/04/2023 Palpitations 12/22/2022 S/P percutaneous patent foramen ovale closure Paroxysmal atrial fibrillation 12/22/2022 PFO (patent foramen ovale) 08/22/2022 H/O: CVA (cerebrovascular accident) 08/22/2022 Statin myopathy 08/22/2022 Mixed hyperlipidemia 08/22/2022 Hypogonadism in male 08/22/2022 Pituitary neoplasm 10/17/2010 Encounters Date Type Department Care Team Description 05/03/2024 9:15 AM HOMICIDE SQUAD LIEUTENANT Office Visit [facility] Cardiology [address] [place] [address] Wily Banuelos MD Paroxysmal atrial fibrillation (HCC) (Primary Dx); Chronic anticoagulation; Bilateral arm numbness and tingling while sleeping; Statin myopathy; S/P percutaneous patent foramen ovale closure; Mixed hyperlipidemia from Last 3 Months Immunizations Immunization Administration Dates Next Due Pfizer SARS-CoV-2 Monovalent Vaccination (12+ Yrs) PURPLE 07/13/2020,06/18/2020 Surgical History Surgery Date Site/Laterality Comments MANDIBLE FRACTURE SURGERY 02/14/1992 - 03/15/1992 reconstructive for misaligned teeth WISDOM TOOTH EXTRACTION NASAL SEPTOPLASTY W/ TURBINOPLASTY 09/03/2020 SHOULDER SURGERY 03/16/2020 - 03/15/2021 Right VASECTOMY 2006 Medical History Medical History Date Comments Sinusitis Stroke (HCC) 2022 Sleep walking Hypogonadism, testicular PFO (patent foramen ovale) Hyperlipidemia Family History Medical History Relation Name Comments Heart disease Father Chris Parkinsonism Father Chris Stroke Father Chris Heart disease Mother Verenice Relation Name Status Comments Father Chris Alive Mother Verenice Social History Tobacco Use Types Packs/Day Years Used Date Smoking Tobacco: Never Smokeless Tobacco: Never Tobacco Cessation:Counseling Given: Not Answered AUDIT-C Answer Date Recorded Q1: How often do you have a drink containing alc ohol? 2-4 times a month 12/05/2022 Q2: How many drinks containi ng alcohol do you have on a typical day when you are drinking? 1 or 2 12/05/2022 Q3: How often do you have si x or more drinks on one occasion? Never 12/05/2022 Personal Safety Answer Date Recorded Have you ever been in or are you currently in a harmful physical or emotional relationship or is someone making you feel afraid or unsafe? Denies 12/05/2022 Sex and Gender Information Value Date Recorded Sex Assigned at Not on file Legal Sex Male 3:53 AM HOMICIDE SQUAD LIEUTENANT Gender Identity Male 09/03/2020 8:31 AM CDT Sexual Orientation Straight 09/03/2020 8: 31 AM CDT Obstetrics History Last Filed Vital Signs Vital Sign Reading Time Taken Comments Blood Pressure 112/72 05/03/2024 9:38 AM HOMICIDE SQUAD LIEUTENANT Pulse 64 05/03/2024 9:38 AM HOMICIDE SQUAD LIEUTENANT Temperature 36.6 C (97.9 F) 12/05/2022 7:35 AM CDT Respiratory Rate 16 01/20/2023 7:46 AM HOMICIDE SQUAD LIEUTENANT Oxygen Saturation 96% 05/03/2024 9:38 AM HOMICIDE SQUAD LIEUTENANT Inhaled Oxygen Concentration - - Weight 91.2 kg (201 lb) 05/03/2024 9:38 AM HOMICIDE SQUAD LIEUTENANT Height 172.7 cm (5' 8 ) 05/03/2024 9:38 AM HOMICIDE SQUAD LIEUTENANT Body Mass Index 30.56 05/03/2024 9:38 AM HOMICIDE SQUAD LIEUTENANT Plan of Treatment Health Maintenance Due Date Last Done Comments Colon Cancer Screening-Colonoscopy 1968 Depression Screening 1968 Hepatitis C Screening 1968 Prostate Cancer Screening-PSA 1968 Hepatitis B Screening 1986 Regular Well Visit/Exam 18-64 1986 Zoster Vaccine (1 of 2) 2018 Covid-19 Vaccine (2023-2 5 season) 2023 07/13/2020, 06/18/2020 Influenza Vaccine (#1) 2023 DTaP/Tdap/Td Vaccine (2 - Td or Tdap) 05/03/2029 05/03/2019 Pneumococcal vaccine <65 Aged Out No longer eligible based on patient's age to complete this topic Medical Devices Implanted Type Area Awake Overnight Counselor Device Identifier Shelf Expiration Date Model / Serial / Lot [employer] 30mm Soft Wire Frame Fluoroscopic Image Septal Occluder [id number] - [id number] - [id number] Implanted:Qty: 1 on 12/05/2022 by José Nance MD PhD at [facility] Septal Defect Closure Device N/A: Atrial Septal Defect Wl [employer] 06/07/2024 [id number] / [id number] / [id number] Insurance [facility] H[facility]/PPO Address: [place] [address] [facility] Address: [id number] [place] [address] [facility] CHOICE PLUS [facility] H[facility]/PPO Address: [place] [address] Advance Directives For more information, please contact: [phone] * Full Code (Latest Code Status on File) Date Activated Date Inactivated Comments 09/03/2020 12:20 PM 09/03/2020 6:38 PM Care Teams Metal Fabrication Supervisor Relationship Specialty Start Date End Date Christo García DO PCP - General Internal Medicine 07/25/20 Keyon Pham MD [address] [place] [address] Consulting Physician Otolaryngology 09/03/20 [place] [address] Consulting Physician Cardiology 10/07/22
--- OUTSIDE RECORDS SUMMARY | 2024-07-20 08:55 | XMS_ITS | Referral Summary ---
Author Organization [facility] [address] [place] [address] Care Team Providers Care Trigonometry Teacher Name Role Phone Christo García DO Primary Care Provider [phone] Keyon Pham MD Unavailable [phone] Alex Bustos MD Unavailable [phone] Encounters Date Type Department Care Team Description 05/03/2024 9:15 AM PROCUREMENT COST COORDINATOR Office Visit [facility] Cardiology [address] [place] [address] Wily Banuelos MD Paroxysmal atrial fibrillation (HCC) (Primary Dx); Chronic anticoagulation; Bilateral arm numbness and tingling while sleeping; Statin myopathy; S/P percutaneous patent foramen ovale closure; Mixed hyperlipidemia from Last 3 Months Allergies No known active allergies Medications clonazePAM (KlonoPIN) 1 mg tablet Take 1.5 tablets (1.5 mg total) by mouth nightly 1 Active fish oil-E-fatty acid5-rwfe935 400-5 mg-unit capsule Take 3,000 mg by mouth daily Active testosterone enanthate 200 mg/mL injection Inject 1 mL (200 mg total) into the muscle as instructed every 7 days 3 Active jnblfdvk-nnt-mn szypw-W-htcx305 (Alive Men's 50 Plus Ultra) 800 mcg [...] mouth daily with dinner 90 tablet 3 4 Active metoprolol XL (TOPROL-XL) 50 mg extended [...] Hypogonadism in male 08/22/2022 Pituitary neoplasm 10/17/2010 Immunizations Immunization Administration Dates Next Due Pfizer SARS-CoV-2 Monovalent Vaccination (12+ Yrs) PURPLE 07/13/2020,06/18/2020 Social History Tobacco Use Types Packs/Day Years [...] on file Legal Sex Male 3:53 AM PROCUREMENT COST COORDINATOR Gender Identity Male 09/03/2020 8:31 AM CDT Sexual Orientation Straight 09/03/2020 8: 31 AM CDT Last Filed Vital Signs Vital Sign Reading Time Taken Comments Blood Pressure 112/72 05/03/2024 9:38 AM PROCUREMENT COST COORDINATOR Pulse 64 05/03/2024 9:38 AM PROCUREMENT COST COORDINATOR Temperature 36.6 C (97.9 F) 12/05/2022 7:35 AM CDT Respiratory Rate 16 01/20/2023 7:46 AM PROCUREMENT COST COORDINATOR Oxygen Saturation 96% 05/03/2024 9:38 AM PROCUREMENT COST COORDINATOR Inhaled Oxygen Concentration - - Weight 91.2 kg (201 lb) 05/03/2024 9:38 AM PROCUREMENT COST COORDINATOR Height 172.7 cm (5' 8 ) 05/03/2024 9:38 AM PROCUREMENT COST COORDINATOR Body Mass Index 30.56 05/03/2024 9:38 AM PROCUREMENT COST COORDINATOR Plan of Treatment Not on file Medical Devices Implanted Type Area Nuclear Chemistry Technician Device Identifier Shelf Expiration Date Model / Serial / Lot [employer] [place] 30mm Soft Wire Frame Fluoroscopic Image Septal Occluder [id number] - [id number] - [id number] Implanted:Qty: 1 on 12/05/2022 by José Nance MD PhD at [facility] Septal Defect Closure Device N/A: Atrial Septal Defect Wl [employer] 06/07/2024 [id number] / [id number] / [id number] Insurance [facility] Advance Directives For more information, please contact: [phone] * Full Code (Latest Code Status on File) Date Activated Date Inactivated Comments 09/03/2020 12:20 PM 09/03/2020 6:38 PM Care Teams Trigonometry Teacher Relationship Specialty Start Date End Date Christo García DO PCP - General Internal Medicine 07/25/20 Keyon Pham MD [address] [place] [address] Consulting Physician Otolaryngology 09/03/20 [place] [address] Consulting Physician Cardiology 10/07/22
--- OUTSIDE RECORDS SUMMARY | 2024-07-20 08:55 | XMS_ITS | Clinical Summary ---
Author Organization [facility] Address [address] [place] [address] Care Team Providers Care Management Retail Intern Name Role Phone MarilynChristo mallory Cuco Primary Care Provider Social History Tobacco Use Types Packs/Day Years Used Date Smoking Tobacco: Never Assessed Sex and Gender Information Value Date Recorded Sex Assigned at Not on file Legal Sex Male 8:48 AM CARTON CATCHER Gender Identity Not on file Sexual Orientation Not on file Plan of Treatment Health Maintenance Due Date Last Done Comments DTAP/TDAP/TD VACCINES (1 - Tdap) 06/13/1987 HEPATITIS B VACCINES (1 of 3 - 19+ 3-dose series) 06/13/1987 COLORECTAL SCREENING 2013 Colorectal Cancer Screening 2013 FIT-DNA Q 3 years 2013 FIT/FOBT Q 1 year 2013 Flex Sig/CT Colonography Q 5 years 2013 ZOSTER VACCINE (1 of 2) 2018 INFLUENZA VACCINE (#1) 2023 COVID-19 Vaccine (2023-25 season) 2023, 06/18/2020 Insurance [facility] [id number] Care Teams Management Retail Intern Relationship Specialty Start Date End Date Christo García DO [address] [place] [address] PCP - General Internal Medicine 05/17/19
--- OUTSIDE RECORDS SUMMARY | 2024-07-20 08:55 | XMS_ITS | Encounter Summary ---
Author Organization [facility] Address [address] [place] [address] Phone Care Team Providers Care Stretcher Operator Name Role Phone Christo García DO Primary Care Provider [phone] Keyon Pham MD Unavailable [phone] Alex Bustos MD Unavailable [phone] Encounter Details Date Type Department Care Team (Latest Contact Info) Description 09/09/2022 Orders Only [facility] Scanning, Provider Social History Tobacco Use Types Packs/Day Years Used Date Smoking Tobacco: Never Smokeless Tobacco: Never AUDIT-C Answer Date Recorded Q1: How often do you have a drink containing alc ohol? Never 09/03/2020 Q2: How many drinks containi ng alcohol do you have on a typical day when you are drinking? 1 or 2 09/03/2020 Q3: How often do you have six or more drinks on one occasion? Never 09/03/2020 Sex and Gender Information Value Date Recorded Sex Assigned at Not on file Legal Sex Male 3:53 AM REAL ESTATE BROKER ASSOCIATE Gender Identity Male 09/03/2020 8:31 AM CDT Sexual Orientation Straight 09/03/2020 8: 31 AM CDT documented as of this encounter Plan of Treatment Not on file documented as of this encounter Procedures Procedure Name Priority Date/Time Associated Diagnosis Comments CARDIOLOGY DOCUMENT SCAN 09/09/2022 documented in this encounter Results * CARDIOLOGY DOCUMENT SCAN (09/09/2022) Anatomical Region Laterality Modality Other us Provider Scanning CV CARDIAC SERVICES PROCEDURES Final Result documented in this encounter Visit Diagnoses Not on filedocumented in this encounter Care Teams Stretcher Operator Relationship Specialty Start Date End Date Christo García DO PCP - General Internal Medicine 07/25/20 Keyon Pham MD [address] [place] [address] Consulting Physician Otolaryngology 09/03/20 Alex Bustos MD [address] [place] [address] Consulting Physician Cardiology 10/07/22 documented as of this encounter
--- OUTSIDE RECORDS SUMMARY | 2024-07-20 08:55 | XMS_ITS | Encounter Summary ---
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 Gender Identity Male 09/03/2020 8:31 AM CDT Sexual Orientation Straight 09/03/2020 8: 31 AM CDT documented as of this encounter Plan of Treatment Not on file documented as of this encounter Procedures Procedure Name Priority Date/Time Associated Diagnosis Comments SCAN - RADIOLOGY/IMAGING 2022 CARDIOLOGY DOCUMENT SCAN 2022 documented in this encounter Results * CARDIOLOGY DOCUMENT SCAN (2022) Anatomical Region Laterality Modality Other us Provider Scanning CV CARDIAC SERVICES PROCEDURES Edited Result - Final * SCAN - RADIOLOGY/IMAGING (2022) Anatomical Region Laterality Modality Other us Provider Scanning Final Result documented in this encounter Visit Diagnoses Not on filedocumented in this encounter Care Teams Dry Room Operator Relationship Specialty Start Date End Date Christo García DO PCP - General Internal Medicine 07/25/20 Keyon Pham MD [address] [place] [address] Consulting Physician Otolaryngology 09/03/20 Alex Bustos MD [address] [place] [address] Consulting Physician Cardiology 10/07/22 documented as of this encounter
[2024-07-20 13:47] LABS: Basophils Percent Auto 0.5 % (0.2-1.2); Eosinophils Absolute Auto 0.3 K/mm3 (0-0.3); Eosinophils Percent Auto 5.5 % (0-4.4); Hematocrit 50.4 % (42.0-52.0); Hemoglobin 17.3 g/dL (14.0-18.0); Immature Granulocyte Absolute 0.01 K/mm3 (0.00-0.031); Immature Granulocyte Percent A 0.2 % (0-0.5); Lymphocytes Absolute Auto 1.76 K/mm3 (0.9-3.2); Lymphocytes Percent Auto 28.4 % (18.3-44.2); Mean Corpuscular HGB Conc 34.3 g/dl (32-36); Mean Corpuscular Hemoglobin 31.5 pg (26-34); Mean Corpuscular Volume 91.8 fl (80-100); Mean Platelet Volume 9.9 fl (7.4-10.4); Monocytes Absolute Auto 0.6 K/mm3 (0.1-0.6); Neutrophils Absolute Auto 3.5 K/mm3 (1.3-6.7); Neutrophils Percent Auto 56.4 % (45.5-73.1); Platelet Count Result 250 k/mm3 (150-375); Red Blood Count 5.49 M/mm3 (4.6-6.20); Red Cell Distribution Width 12.4 % (11.5-14.5); White Blood Count 6.2 K/mm3 (4.5-10.0)
[2024-07-20 14:15] LABS: Alanine Aminotransferase 35 U/L (6-50); Albumin Level 4.4 g/dL (3.5-5.1); Alkaline Phosphatase 73 U/L (38-126); Anion Gap 9 mmol/L (4-12); Aspartate Amino Transferase 75 U/L (17-59); Blood Urea Nitrogen 22 mg/dL (9-20); Carbon Dioxide 28 mmol/L (22-30); Chloride 100 mmol/L (98-107); Estimated Glomerular Filt Rate 49; Glucose 64 mg/dL (65-110); Potassium 4.4 mmol/L (3.4-5.0); Sodium 137 mmol/L (137-145)
[2024-07-21 08:53] LABS: LH <0.2 mIU/mL (1.5-9.3)
== END 2024-07-20 08:46 | disposition home or self-care (01) ==
LOC: ANHGOSHLAB 08:46
PROVIDERS: PCP Internal Medicine; Visit Provider Internal Medicine
DX: E29.1 Testicular hypofunction (principal); Z79.890 Hormone replacement therapy; Z12.5 Encounter for screening for malignant neoplasm of prostate; I48.91 Unspecified atrial fibrillation; I48.92 Unspecified atrial flutter
CPT/HCPCS: 36415; 80053; 83002; 84153; 84402; 84403; 85025; G0103

== ENCOUNTER 2024-08-26 08:41 | Outpatient (CLI) | payer OTHER, SELFPAY ==
--- OUTSIDE RECORDS SUMMARY | 2024-08-26 08:46 | XMS_ITS | Data Portability ---
Author Organization [employer], [facility] Address [address] [place] [address] Care Team Providers Care Assistant Chief Train Dispatcher Name Role Phone TOMA GRIER [facility] Provider [facility] Primary Care Provider Assessment No assessment recorded. Plan of Treatment Reminders Order Date Submit Date Provider Last Modified By Organization Details Last Modified Time Details Appointments None recorded. Lab None recorded. Referral None recorded. Procedures None recorded. Surgeries None recorded. Imaging XR, shoulder - room 15 2020 021 [email or web address] Not available 15:20:20 XR, shoulder - rm 14 2020 021 [email or web address] Not available 09:21:42 Medication Orders None recorded. Patient TargetsNo targets recorded. Patient InstructionsNo instructions recorded. Reason for Referral None Reported. Results Created Date Observation Date Name Description Value Unit Range Abnormal Flag Note LastModifiedBy Organization Detail LastModifiedTime 01/17/20 21 01/15/2021 MRI, shoul emerson, w/o contr ast No observ ation record ed. [email or web address] Not Available 2020 14:17:10 Result Notes None recorded. Problems No Known Problems Procedures Surgical History Date Name Laterality Status Provider Name and Address Organization Details Recorded Time 8 [place] [address] [facility], [place], [address], [employer] 06/04/2017 13:22:25 7 [place] [address] [address] [facility] [address], [place], [address], [employer] [facility], [employer] 03/05/2017 16:56:00 Imaging Results None recorded. Procedure Notes None recorded. Medical Equipment None Reported. Allergies No known drug allergies Medications Name Sig Start Date Stop Date Status Note LastModified by Organization Details LastModified Time prednisone 10 mg tablet active Not Available Not Available No t Available hydrocodone 5 mg-acetaminophe n 325 mg tablet 1-2 tabs po Q 4-6 hrs prn pain active Not Available Not Available No t Available clonazepam 0.5 mg tablet active Not Available Not Available No t Available clonazepam 1 mg tablet active Not Available Not Available Not Available hydrocodone 10 mg-acetaminophe n 325 mg tablet TAKE 1 TABLET BY MOUTH EVERY 6 HOURS NEEDED FOR PAIN active Not Available Not Available No t Available hydrocodone 7.5 mg-acetaminophe n 325 mg tablet TAKE 1 TABLET BY MOUTH EVERY 6 HOURS FOR UP TO 6 DAYS NEEDED FOR PAIN active Not Available Not Available No t Available cephalexin 500 mg capsule active Not Available Not Available N ot Available testosterone cypionate 200 mg/mL intramuscular oil active Not Available Not Available Not Available Vitals Date Recorded Body height Body mass index (BMI) Body weight Heart rate Systolic blood pressure Diastolic blood pressure Provider Name and Address Organization Details Last Updated DateTime 8 172.72 cm 29.6 kg/m2 42402.5 1 g 55 /min 123 mm[Hg] 78 mm[Hg] Camille Pelayo [facility] [employer] [facility], [employer] 8 12:30:00 Date Recorded Body height Body mass index (BMI) Body weight Heart rate Systolic blood pressure Diastolic blood pressure Provider Name and Address Organization Details Last Updated DateTime 8 172.72 cm 29.6 kg/m2 02796.5 1 g 68 /min 127 mm[Hg] 82 mm[Hg] Amber Croft [facility] [employer], [facility] 8 11:19:50 Date Recorded Body height Body mass index (BMI) Body weight Heart rate Systolic blood pressure Diastolic blood pressure Provider Name and Address Organization Details Last Updated DateTime 8 172.72 cm 29.6 kg/m2 00739.5 1 g 74 /min 132 mm[Hg] 77 mm[Hg] Bernard Moore [facility] [employer] [facility], [facility] 8 10:32:40 Date Recorded Body height Body mass index (BMI) Body weight Systolic blood pressure Diastolic blood pressure Provider Name and Address Organization Details Last Updated DateTime 10/10/2020 172.72 cm 29.3 kg/m2 85074.33 g 132 mm[Hg] 77 mm[Hg] [facility] [employer] 16:29:07 Date Recorded Body height Body mass index (BMI) Body weight Provider Name and Address Organization Details Last Updated DateTime 01/09/2021 172.72 cm 28.6 kg/m2 74980.37 g Zunilda Roper [facility] [employer] 01/09/2021 12:14:37 Social History Question Answer Notes LastModified by Organizat ion Details LastModified Time Tobacco Smoking Status Never Smoker Nevaeh Merary chacon [facility] [employer] [facility] [facility] [employer] 02/25/2017 12:08:09 What Was The Date Of Your Most Recent Tobacco Screening? 08/04/2017 Information n ot available 10/07/2018 Sex: Unknown Functional Status None recorded. Mental Status None recorded. Family History Nothing Reported. Medical History Condition Response HIV or AIDS N Coronary Artery Disease N Gout N Kidney Stones N Hyperthyroidism N Hernia N Head Trauma/Injury N COPD N Blood Clots N Lung Disease N Hypothyroidism N Depression N Pacemaker N Anxiety Disorder N Arthritis N Cancer N Stroke N Neck Injury N Leg or Foot Ulcers N High Cholesterol N Liver Disease N Rheumatoid Arthritis N Headaches N Fibromyalgia N Kidney Disease N Heart Problems N Migraines N Thyroid Problems N Anemia N Multiple Sclerosis N Ulcers N Heart Attack ([place]) N Diabetes N Bleeding Disorder N Seizures/Epilepsy N Tuberculosis N Urinary Tract Infection N Back Problems N Diverticulitis N Asthma N Lupus N Peripheral Vascular Disease N Sleep Disorder N GERD/Reflux N Hepatitis N Aneurysm N Heart Disease N Pulmonary Embolism N Hypertension N Osteoporosis N Past Encounters Encounter ID Performer Location Encounter Start Date Encounter Closed Date Diagnosis/Indication Diagnosis SNOMED-CT Code Diagnosis ICD10 Code Diagnosis Note [id number] Wily Gross MD [facility] [address] [facility] [address] [facility] [place] [address] 02/25/2017 11:37:09 02/25/2017 14:15:59 Knee pain 57619657 M25.561 Pain of elbow region 743 46275 M25.521 Lateral epicondylitis 20 6687728 M77.11 [id number] Wily Gross MD [facility] [address] [place], [place] [address] 03/05/2017 10:51:43 03/05/2017 14:10:59 Osteoarthritis of knee 877660690 M17.0 Strain of muscle and/or tendon of elbow region 483696211 S56.911D [id number] Wily Gross MD [facility] [address] [place] [address] 04/17/2017 09:52:01 04/17/2017 14:44:26 [id number] Wily Gross MD [facility] [address] [place] [address] 05/21/2017 12:22:09 05/22/2017 10:18:46 [id number] Wily Gross MD [facility] [address] [place] [address] 06/04/2017 10:58:10 06/04/2017 16:21:26 [id number] Wily Gross MD [facility] [address] [place] [address] 08/04/2017 10:23:44 08/04/2017 15:57:04 Knee pain 36161993 M25.561 Lateral epicondylitis 20 2407666 M77.11 [id number] Wily Gross MD [facility] [address] [place] [address] 10/10/2020 16:03:31 10/11/2020 09:21:42 Pain of shoulder region 74377495 M25.511 [id number] Wily Gross MD [facility] [address] [place] [address] 01/09/2021 12:05:32 01/09/2021 15:20:20 Pain of shoulder region 78802836 M25.511 Health Concerns Section Related Observation LastModified by Organization Gloria ls LastModified Time None Recorded Concern Status LastModified by Organization Details LastModified Time None Recorded Advance Directives Directive None Recorded Payers Insurance Date Sequence Insurance Name Policy Number Policy Chung Covered Member ID Chung Member ID Guarantor Name 01/08/2021 1 [facility] [id number] Linwood Persaud [id number] Linwood Persaud
--- OUTSIDE RECORDS SUMMARY | 2024-08-26 08:46 | XMS_ITS | Referral Summary ---
Author Organization [facility] [address] Address [address] [place] [address] Care Team Providers Care Dispensing Audiologist Name Role Phone Christo García DO Primary Care Provider [phone] Keyon Pham MD Unavailable [phone] Alex Bustos MD Unavailable [phone] Allergies No known active allergies Medications clonazePAM (KlonoPIN) 1 mg tablet Take 1.5 tablets (1.5 mg total) by mouth nightly 1 Active fish oil-E-fatty acid5-ykbc493 400-5 mg-unit capsule Take 3,000 mg by mouth daily Active testosterone enanthate 200 mg/mL injection Inject 1 mL (200 mg total) into the muscle as instructed every 7 days 3 Active wgyxpzvu-edz-ld rtteg-U-ohdl209 (Alive Men's 50 Plus Ultra) 800 mcg [...] on file Legal Sex Male 3:53 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 Gender Identity Male 09/03/2020 8:31 AM CDT Sexual Orientation Straight 09/03/2020 8: 31 AM CDT Last Filed Vital Signs Vital Sign Reading Time Taken Comments Blood Pressure 112/72 05/03/2024 9:38 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 Pulse 64 05/03/2024 9:38 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 Temperature 36.6 C (97.9 F) 12/05/2022 7:35 AM CDT Respiratory Rate 16 01/20/2023 7:46 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 Oxygen Saturation 96% 05/03/2024 9:38 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 Inhaled Oxygen Concentration - - Weight 91.2 kg (201 lb) 05/03/2024 9:38 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 Height 172.7 cm (5' 8) 05/03/2024 9:38 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 Body Mass Index 30.56 05/03/2024 9:38 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 Plan of Treatment Not on file Medical Devices Implanted Type Area Astronomy Instructor Device Identifier Shelf Expiration Date Model / Serial / Lot [employer] 30mm Soft Wire Frame Fluoroscopic Image Septal Occluder [id number] - [id number] - [id number] Implanted:Qty: 1 on 12/05/2022 by José Nance MD PhD at [facility] Septal Defect Closure Device N/A: Atrial Septal Defect [employer] 06/07/2024 [id number] / [id number] / [id number] Insurance [facility] H[facility]/PPO Address: [facility] [address] [place] [address] [facility] CHOICE PLUS [facility] HMO/PPO Address: [address] [place], [place] [id number] [facility] CHOICE PLUS [facility] H[facility]/PPO Address: [address] [place] [address] Advance Directives For more information, please contact: [phone] * Full Code (Latest Code Status on File) Date Activated Date Inactivated Comments 09/03/2020 12:20 PM 09/03/2020 6:38 PM Care Teams Dispensing Audiologist Relationship Specialty Start Date End Date Christo García DO PCP - General Internal Medicine 07/25/20 [place] [address] Consulting Physician Otolaryngology 09/03/20 Alex Bustos MD [address] [place] [address] Consulting Physician Cardiology 10/07/22
--- OUTSIDE RECORDS SUMMARY | 2024-08-26 08:46 | XMS_ITS | Clinical Summary ---
Author Organization [employer] Address [address] [place] [address] Care Team Providers Care Binder And Box Builder Name Role Phone MarilynChristo mallory Cuco Primary Care Provider Social History Tobacco Use Types Packs/Day Years Used Date Smoking Tobacco: Never Assessed Sex and Gender Information Value Date Recorded Sex Assigned at Not on file Legal Sex Male 8:48 AM DOCUMENTATION COORDINATOR Gender Identity Not on file Sexual Orientation [...] COVID-19 Vaccine (2023-25 season) 2023, 06/18/2020 Insurance [facility] [id number] Care Teams Binder And Box Builder Relationship Specialty Start Date End Date Christo Garcaí DO [address] [facility] [address] [place] [address] PCP - General Internal Medicine 05/17/19
--- OUTSIDE RECORDS SUMMARY | 2024-08-26 08:46 | XMS_ITS | Encounter Summary ---
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
--- OUTSIDE RECORDS SUMMARY | 2024-08-26 08:46 | XMS_ITS | Clinical Summary ---
Author Organization [facility] [address] Address [address] [place] [address] Care Team Providers Care Bingo Caller Name Role Phone Christo García DO Primary Care Provider [phone] Keyon Pham MD Unavailable [phone] Alex Bustos MD Unavailable [phone] Allergies No known active allergies Medications clonazePAM (KlonoPIN) 1 mg tablet Take 1.5 tablets (1.5 mg total) by mouth nightly 1 Active fish oil-E-fatty acid5-omju374 400-5 mg-unit capsule Take 3,000 mg by mouth daily Active testosterone enanthate 200 mg/mL injection Inject 1 mL (200 mg total) into the muscle as instructed every 7 days 3 Active evzozeup-ypw-pw wjjoj-Z-mfmb448 (Alive Men's 50 Plus Ultra) 800 mcg [...] 10/17/2010 Immunizations Immunization Administration Dates Next Due XZERES SARS-CoV-2 Monovalent Vaccination (12+ Yrs) PURPLE 07/13/2020,06/18/2020 [...] on file 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 Gender Identity Male 09/03/2020 8:31 AM CDT Sexual Orientation Straight 09/03/2020 8: 31 AM CDT Obstetrics History Last Filed Vital Signs Vital Sign Reading Time Taken Comments Blood Pressure 112/72 05/03/2024 9:38 AM STOCK HOLDER Pulse 64 05/03/2024 9:38 AM STOCK HOLDER Temperature 36.6 C (97.9 F) 12/05/2022 7:35 AM CDT Respiratory Rate 16 01/20/2023 7:46 AM STOCK HOLDER Oxygen Saturation 96% 05/03/2024 9:38 AM STOCK HOLDER Inhaled Oxygen Concentration - - Weight 91.2 kg (201 lb) 05/03/2024 9:38 AM STOCK HOLDER Height 172.7 cm (5' 8) 05/03/2024 9:38 AM STOCK HOLDER Body Mass Index 30.56 05/03/2024 9:38 AM STOCK HOLDER Plan of Treatment Health Maintenance Due Date Last Done Comments Colon Cancer Screening-Colonoscopy 1968 Depression Screening 1968 Hepatitis C Screening 1968 Prostate Cancer Screening-PSA 1968 Hepatitis B Screening 1986 Regular Well Visit/Exam 18-64 1986 Zoster Vaccine (1 of 2) 2018 Covid-19 Vaccine (3 - 2023-2 5 season) 2023 07/13/2020, 06/18/2020 Influenza Vaccine (Season Ended) 2024 DTaP/Tdap/Td Vaccine (2 - Td or Tdap) 05/03/2029 05/03/2019 Pneumococcal vaccine <65 Aged Out No longer eligible based on patient's age to complete this topic Medical Devices Implanted Type Area Office Automation Clerk Device Identifier Shelf Expiration Date Model / Serial / Lot [employer] 30mm Soft Wire Frame Fluoroscopic Image Septal Occluder [id number] - [id number] - [id number] Implanted:Qty: 1 on 12/05/2022 by José Nance MD PhD at [facility] Septal Defect Closure Device N/A: Atrial Septal Defect [employer] 06/07/2024 [id number] / [id number] / [id number] Insurance Advance Directives For more information, please contact: [phone] * Full Code (Latest Code Status on File) Date Activated Date Inactivated Comments 09/03/2020 12:20 PM 09/03/2020 6:38 PM Care Teams Bingo Caller Relationship Specialty Start Date End Date Christo García DO PCP - General Internal Medicine 07/25/20 Keyon Pham MD [address] [place] [address] Consulting Physician Otolaryngology 09/03/20 Alex Bustos MD [address] [place] [address] Consulting Physician Cardiology 10/07/22
--- OUTSIDE RECORDS SUMMARY | 2024-08-26 08:46 | XMS_ITS | Encounter Summary ---
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
[2024-08-26 12:38] LABS: Alanine Aminotransferase 36 U/L (6-50); Albumin Level 4.2 g/dL (3.5-5.1); Alkaline Phosphatase 51 U/L (38-126); Anion Gap 6 mmol/L (4-12); Aspartate Amino Transferase 76 U/L (17-59); Bilirubin,Total 0.8 mg/dL (0.2-1.3); Blood Urea Nitrogen 21 mg/dL (9-20); Calcium 9.4 mg/dL (8.4-10.2); Carbon Dioxide 28 mmol/L (22-30); Chloride 104 mmol/L (98-107); Estimated Glomerular Filt Rate 57; Glucose 94 mg/dL (65-110); Potassium 4.3 mmol/L (3.4-5.0); Sodium 138 mmol/L (137-145); Total Protein 6.8 g/dL (6.3-8.2)
== END 2024-08-26 08:42 | disposition home or self-care (01) ==
LOC: ANHGOSHLAB 08:43
PROVIDERS: PCP Internal Medicine; Visit Provider Internal Medicine
DX: R74.01 Elevation of levels of liver transaminase levels (principal)
CPT/HCPCS: 36415; 80053

== ENCOUNTER 2024-10-06 08:38 | Outpatient (CLI) | payer OTHER, SELFPAY ==
--- OUTSIDE RECORDS SUMMARY | 2024-10-06 08:42 | XMS_ITS | Clinical Summary ---
Author Organization [facility] [address] Address [address] [place] [address] Care Team Providers Care Teacher Home Therapy Name Role Phone Christo García DO Primary Care Provider [phone] Keyon Pham MD Unavailable [phone] Alex Bustos MD Unavailable [phone] Allergies No known active allergies Medications clonazePAM (KlonoPIN) 1 mg tablet Take 1.5 tablets (1.5 mg total) by mouth nightly 06/01/19 21 Active fish oil-E-fatty acid5-lbzy096 400-5 mg-unit capsule Take 3,000 mg by mouth daily Active testosterone enanthate 200 mg/mL injection Inject 1 mL (200 mg total) into the muscle as instructed every 7 days 10/09/19 23 Active suixvyhv-tna-h mgdfmw-A-cnqy9 28 (Alive Men's 50 Plus Ultra) 800 mcg DFE- 120 mcg tablet 04/09/19 11 Active BD Luer-Anders Syringe 3 mL 21 gauge x 1 syringe USE TO INJECT TESTOSTERONE ONCE WEEKLY 01/09/20 23 Active cholecalcifero l (VITAMIN D-3) 2000 unit capsule 1 capsule (2,000 Units total) daily Active rosuvastatin (CRESTOR) 5 mg tablet Take 1 tablet (5 mg total) by mouth daily 90 tablet 3 12/24/19 24 025 Active metoprolol XL (TOPROL-XL) 50 mg extended release tablet Take 1 tablet (50 mg total) by mouth daily 90 tablet 1 03/22/19 25 Active Xarelto 20 mg tablet TAKE 1 TABLET BY MOUTH DAILY WITH DINNER 90 tablet 3 10/04/19 25 Active rivaroxaban (XARELTO) 20 mg tablet Take 1 tablet (20 mg total) by mouth daily with dinner 90 tablet 3 12/29/19 24 025 Discontinued Active Problems Problem Noted Date Diagnosed Date Bilateral arm numbness and tingling while sleepi ng 05/03/2024 Chronic anticoagulation 02/04/2023 Palpitations 12/22/2022 S/P percutaneous patent foramen ovale closure Paroxysmal atrial fibrillation 12/22/2022 PFO (patent foramen ovale) 08/22/2022 H/O: CVA (cerebrovascular accident) 08/22/2022 Statin myopathy 08/22/2022 Mixed hyperlipidemia 08/22/2022 Hypogonadism in male 08/22/2022 Pituitary neoplasm 10/17/2010 Immunizations Immunization Administration Dates Next Due [facility] [employer] SARS-CoV-2 Monovalent Vaccination (12+ Yrs) PURPLE 07/13/2020,06/18/2020 [...] on file Legal 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 Male 3:53 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 Gender Identity Male 09/03/2020 8:31 AM CDT Sexual Orientation Straight 09/03/2020 8: 31 AM CDT Obstetrics History Last Filed Vital Signs Vital Sign Reading Time Taken Comments Blood Pressure 112/72 05/03/2024 9:38 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 Pulse 64 05/03/2024 9:38 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 Temperature 36.6 C (97.9 F) 12/05/2022 7:35 AM CDT Respiratory Rate 16 01/20/2023 7:46 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 Oxygen Saturation 96% 05/03/2024 9:38 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 Inhaled Oxygen Concentration - - Weight 91.2 kg (201 lb) 05/03/2024 9:38 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 Height 172.7 cm (5' 8) 05/03/2024 9:38 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 Body Mass Index 30.56 05/03/2024 9:38 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 Plan of Treatment Health Maintenance Due Date Last Done Comments Colon Cancer Screening-Colonoscopy 1968 Depression Screening 1968 Hepatitis C Screening 1968 Prostate Cancer Screening-PSA 1968 Hepatitis B Screening 1986 Regular Well Visit/Exam 18-64 1986 Zoster Vaccine (1 of 2) 2018 Covid-19 Vaccine (2023-2 5 season) 2023 07/13/2020, 06/18/2020 Influenza Vaccine (#1) 2024 DTaP/Tdap/Td Vaccine (2 - Td or Tdap) 05/03/2029 05/03/2019 Pneumococcal vaccine <65 Aged Out No longer eligible based on patient's age to complete this topic Medical Devices Implanted Type Area Derrick Hand Device Identifier Shelf Expiration Date Model / Serial / Lot Wl [employer] Ernest 30mm Soft Wire Frame Fluoroscopic Image Septal Occluder [id number] - [id number] - [id number] Implanted:Qty: 1 on 12/05/2022 by José Nance MD PhD at [facility] Septal Defect Closure Device N/A: Atrial Septal Defect Wl [employer] 06/07/2024 [id number] / [id number] / [id number] Insurance [facility]/PPO Address: [place] [address] [facility] Address: [place] [address] [facility] Address: [facility] [id number] [place] [address] Advance Directives For more information, please contact: [phone] * Full Code (Latest Code Status on File) Date Activated Date Inactivated Comments 09/03/2020 12:20 PM 09/03/2020 6:38 PM Care Teams Teacher Home Therapy Relationship Specialty Start Date End Date Christo García DO PCP - General Internal Medicine 07/25/20 Keyon Pham MD [address] [place] [address] Consulting Physician Otolaryngology 09/03/20 Alex Bustos MD [address] [place] [address] Consulting Physician Cardiology 10/07/22
--- OUTSIDE RECORDS SUMMARY | 2024-10-06 08:42 | XMS_ITS | Encounter Summary ---
Author Organization [facility] Address [address] [place] [address] Phone Care Team Providers Care Child Psychologist Name Role Phone Christo García DO Primary Care Provider [phone] Keyon Pham MD Unavailable [phone] Alex Bustos MD Unavailable [phone] Encounter Details Date Type Department Care Team [...] on file Legal Sex Male 3:53 AM STUDENT Gender Identity Male 09/03/2020 8:31 AM CDT [...] on filedocumented in this encounter Care Teams Child Psychologist Relationship Specialty Start Date End Date Christo García DO PCP - General Internal Medicine 07/25/20 Keyon Pham MD [address] [place] [address] Consulting Physician Otolaryngology 09/03/20 Alex Bustos MD [address] [place] [address] Consulting Physician Cardiology 10/07/22 documented as of this encounter
--- OUTSIDE RECORDS SUMMARY | 2024-10-06 08:42 | XMS_ITS | Encounter Summary ---
Author Organization [facility] Address [address] [place] [address] Phone Care Team Providers Care Technical Expert Name Role Phone Christo García DO Primary Care Provider [phone] Keyon Pham MD Unavailable [phone] Alex Bustos MD Unavailable [phone] Encounter Details Date Type Department Care Team [...] on file Legal Sex Male 3:53 AM CONSULTING TECHNICAL DIRECTOR Gender Identity Male 09/03/2020 8:31 AM CDT [...] on filedocumented in this encounter Care Teams Technical Expert Relationship Specialty Start Date End Date Christo García DO PCP - General Internal Medicine 07/25/20 Keyon Pham MD [address] [place] [address] Consulting Physician Otolaryngology 09/03/20 Alex Bustos MD [address] [place] [address] Consulting Physician Cardiology 10/07/22 documented as of this encounter
--- OUTSIDE RECORDS SUMMARY | 2024-10-06 08:42 | XMS_ITS | Clinical Summary ---
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
--- OUTSIDE RECORDS SUMMARY | 2024-10-06 08:42 | XMS_ITS | Data Portability ---
Author Organization [email or web address], [facility] Address [address] [facility] [address] [place] [address] Care Team Providers Care Corporate Administrator Name Role Phone TOMA GRIER Primary Care Provider Unavailab le TOMA GRIER Primary Care Provider Assessment [...] Abnormal Flag Note LastModifiedBy Organization Detail LastModifiedTime 01/17/2001/15/2021 MRI, shoul emerson, w/o contr ast No observ ation record ed. [email or web address] Not Available 2020 14:17:10 Result Notes None recorded. Problems No Known Problems Procedures Surgical History Date Name Laterality Status Provider Name and Address Organization Details Recorded Time 8 [place] [address] [place] [address], [address], [employer] 06/04/2017 13:22:25 7 [place] [address] [address] [facility] [address], [place], [address], [employer] [facility], [employer] [place] 03/05/2017 16:56:00 Imaging Results None recorded. Procedure [...] index (BMI) Body weight Heart rate Systolic And Diastolic Provider Name and Address Organization Details Last Updated DateTime 05/21/2017 172.72 cm 29.6 kg/m2 14552.51 g 55 /min 123/78 mm[Hg] Camille Pelayo [facility], [employer] [place] 05/21/2017 12:30:00 Date Recorded Body height Body mass index (BMI) Body weight Heart rate Systolic And Diastolic Provider Name and Address Organization Details Last Updated DateTime 06/04/2017 172.72 cm 29.6 kg/m2 52472.51 g 68 /min 127/82 mm[Hg] Amber Croft [facility] [employer] [place] 06/04/2017 11:19:50 Date Recorded Body height Body mass index (BMI) Body weight Heart rate Systolic And Diastolic Provider Name and Address Organization Details Last Updated DateTime 08/04/2017 172.72 cm 29.6 kg/m2 16448.51 g 74 /min 132/77 mm[Hg] Bernard Moore [facility], [employer] [place] 08/04/2017 10:32:40 Date Recorded Body height Body mass index (BMI) Body weight Systolic And Diastolic Provider Name and Address Organization Details Last Updated DateTime 10/10/2020 172.72 cm 29.3 kg/m2 42722.33 g 132/77 mm[Hg] Berta Dow [employer] 10/10/2020 16:29:07 Date Recorded Body height Body mass index (BMI) Body weight Provider Name and Address Organization Details Last Updated DateTime 01/09/2021 172.72 cm 28.6 kg/m2 03191.37 g Zunilda Roper [employer] 01/09/2021 12:14:37 Social History Question Answer Notes LastModified by Organizat ion Details LastModified Time Tobacco Smoking Status Never Smoker Nevaeh Merary chacon [employer] 02/25/2017 12:08:09 What Was The Date Of Your Most Recent Tobacco Screening? 08/04/2017 Information n ot available 10/07/2018 Sex: Unknown Functional Status None recorded. Mental Status None recorded. Family History Nothing Reported. Medical History Condition Response HIV or AIDS N Coronary Artery Disease N Gout N Kidney Stones N Hyperthyroidism N Hernia N Head Trauma/Injury N Hypothyroidism N Lung Disease N Blood Clots N COPD N Depression N Pacemaker N Anxiety Disorder N Arthritis N Cancer N Stroke N Neck Injury N Leg or Foot Ulcers N High Cholesterol N Liver Disease N Rheumatoid Arthritis N Headaches N Fibromyalgia N Kidney Disease N Heart Problems N Migraines N Thyroid Problems N Anemia N Multiple Sclerosis N Ulcers N Heart Attack ([place]) N Diabetes N Bleeding Disorder N Seizures/Epilepsy [...] SNOMED-CT Code Diagnosis ICD10 Code Diagnosis Note [id number] Wily Gross MD [facility] [address] [facility] ,[address] [place] [id number] 02/25/2017 11:37:09 02/25/2017 14:15:59 Knee pain 42379864 M25.561 Pain of elbow region 743 [address]609 M25.521 Lateral epicondylitis 20 9858203 M77.11 [id number] Wily Gross MD [facility] [address] [place] [address] 03/05/2017 10:51:43 03/05/2017 14:10:59 Osteoarthritis of knee 147223753 M17.0 Strain of muscle and/or tendon of elbow region 545026565 S56.911D [id number] Wily Gross MD [facility] [address] [address] [facility] [address] [place] [address] 04/17/2017 09:52:01 04/17/2017 14:44:26 [id number] Wily Gross MD [facility] [address] [place] [id number] 05/21/2017 12:22:09 05/22/2017 10:18:46 [id number] Wily Gross MD [facility] [address] [place] [id number] 06/04/2017 10:58:10 06/04/2017 16:21:26 [id number] Wily Gross MD [facility] [address] [address] [facility] [address] [place] [address] 08/04/2017 10:23:44 08/04/2017 15:57:04 Knee pain 89047854 M25.561 Lateral epicondylitis 20 9923996 M77.11 [id number] Wily Gross MD [facility] [address] [facility] [address] [place] [address] 10/10/2020 16:03:31 10/11/2020 09:21:42 Pain of shoulder region 55484417 M25.511 [id number] Wily Gross MD [facility] [address] [address] [facility] [address] [place] [address] 01/09/2021 12:05:32 01/09/2021 15:20:20 Pain of shoulder region 33778306 M25.511 Health Concerns Section Related Observation LastModified by Organization Detai ls LastModified Time None Recorded Concern Status LastModified by Organization Details LastModified Time None Recorded Advance Directives Directive None Recorded Payers Insurance Date Sequence Insurance Name Policy Number Policy Chung Covered Member ID Chung Member ID Guarantor Name 01/08/2021 1 [facility] [id number] Linwood Persaud [id number] Linwood Persaud
--- OUTSIDE RECORDS SUMMARY | 2024-10-06 08:42 | XMS_ITS | Referral Summary ---
Author Organization [facility] [address] Address [address] [place] [address] Care Team Providers Care Single Corner Cutter Name Role Phone Christo García DO Primary Care Provider [phone] Keyon Pham MD Unavailable [phone] Alex Bustos MD Unavailable [phone] Allergies No known active allergies Medications clonazePAM (KlonoPIN) 1 mg tablet Take 1.5 tablets (1.5 mg total) by mouth nightly 06/01/19 21 Active fish oil-E-fatty acid5-jenm625 400-5 mg-unit capsule Take 3,000 mg by mouth daily Active testosterone enanthate 200 mg/mL injection Inject 1 mL (200 mg total) into the muscle as instructed every 7 days 10/09/19 23 Active gtredrsk-bro-x ilkzpa-K-vcle3 28 (Alive Men's 50 Plus Ultra) 800 [...] 10/17/2010 Immunizations Immunization Administration Dates Next Due [employer] SARS-CoV-2 Monovalent Vaccination (12+ Yrs) PURPLE 07/13/2020,06/18/2020 [...] on file Legal Sex Male 3:53 AM DRY CELL ASSEMBLY SUPERVISOR Gender Identity Male 09/03/2020 8:31 AM CDT Sexual Orientation Straight 09/03/2020 8: 31 AM CDT Last Filed Vital Signs Vital Sign Reading Time Taken Comments Blood Pressure 112/72 05/03/2024 9:38 AM DRY CELL ASSEMBLY SUPERVISOR Pulse 64 05/03/2024 9:38 AM DRY CELL ASSEMBLY SUPERVISOR Temperature 36.6 C (97.9 F) 12/05/2022 7:35 AM CDT Respiratory Rate 16 01/20/2023 7:46 AM DRY CELL ASSEMBLY SUPERVISOR Oxygen Saturation 96% 05/03/2024 9:38 AM DRY CELL ASSEMBLY SUPERVISOR Inhaled Oxygen Concentration - - Weight 91.2 kg (201 lb) 05/03/2024 9:38 AM DRY CELL ASSEMBLY SUPERVISOR Height 172.7 cm (5' 8) 05/03/2024 9:38 AM DRY CELL ASSEMBLY SUPERVISOR Body Mass Index 30.56 05/03/2024 9:38 AM DRY CELL ASSEMBLY SUPERVISOR Plan of Treatment Not on file Medical Devices Implanted Type Area Talent Management Manager Device Identifier Shelf Expiration Date Model / Serial / Lot [employer] 30mm Soft Wire Frame Fluoroscopic Image Septal Occluder [id number] - [id number] - [id number] Implanted:Qty: 1 on 12/05/2022 by José Nance MD PhD at [facility] Septal Defect Closure Device N/A: Atrial Septal Defect Wl [employer] 06/07/2024 [id number] / [id number] / [id number] Insurance [facility] CHO[facility] PLUS [facility] CHO[facility] PLUS Advance Directives For more information, please contact: [phone] * Full Code (Latest Code Status on File) Date Activated Date Inactivated Comments 09/03/2020 12:20 PM 09/03/2020 6:38 PM Care Teams Single Corner Cutter Relationship Specialty Start Date End Date Christo García DO PCP - General Internal Medicine 07/25/20 Keyon Pham MD [address] [place] [address] Consulting Physician Otolaryngology 09/03/20 Alex Bustos MD [address] [place] [address] Consulting Physician Cardiology 10/07/22
[2024-10-06 13:10] LABS: Alanine Aminotransferase 32 U/L (6-50); Albumin Level 4.0 g/dL (3.5-5.1); Alkaline Phosphatase 52 U/L (38-126); Aspartate Amino Transferase 70 U/L (17-59); Bilirubin,Total 0.7 mg/dL (0.2-1.3); Total Protein 6.9 g/dL (6.3-8.2)
== END 2024-10-06 08:39 | disposition home or self-care (01) ==
LOC: ANHGOSHLAB 08:39
PROVIDERS: PCP Internal Medicine; Visit Provider Internal Medicine
DX: R74.01 Elevation of levels of liver transaminase levels (principal)
CPT/HCPCS: 36415; 80076

== ENCOUNTER 2024-10-27 08:30 | Outpatient (CLI) | payer OTHER, SELFPAY ==
--- NOTE | ~2024-10-27 | US_ITS ---
US right upper quadrant INDICATION: Elevation of liver enzymes PROCEDURE: Realtime right upper abdominal ultrasound. COMPARISON: No prior studies for comparison. FINDINGS: The pancreas is normal without focal mass or pancreatic ductal dilation. Liver echotexture is normal without focal mass or intrahepatic biliary dilatation. There is normal directional flow i n the portal vein. The gallbladder is normal without stones, gallbladder wall thickening or pericholecystic fluid. Comm on bile duct measures 4 mm. No sonographic Interiano's sign. IMPRESSION: 1: Normal limited abdominal ultrasound. Reviewed, dictated and finalized at location A.
== END 2024-10-27 08:31 | disposition home or self-care (01) ==
LOC: GOSHIMG 08:30
PROVIDERS: PCP Internal Medicine; Visit Provider Internal Medicine
DX: R74.01 Elevation of levels of liver transaminase levels (principal)
CPT/HCPCS: 76705

== ENCOUNTER 2024-11-07 08:15 | Outpatient (CLI) | payer OTHER, SELFPAY ==
--- OUTSIDE RECORDS SUMMARY | 2024-11-07 08:27 | XMS_ITS | Clinical Summary ---
Author Organization [facility] [address] Address [address] [place] [address] Care Team Providers Care Manager Voice Name Role Phone Christo García DO Primary Care Provider [phone] Keyon Pham MD Unavailable [phone] Alex Bustos MD Unavailable [phone] Allergies No known active allergies Medications clonazePAM (KlonoPIN) 1 mg tablet Take 1.5 tablets (1.5 mg total) by mouth nightly 06/01/19 21 Active fish oil-E-fatty acid5-vkyt992 400-5 mg-unit capsule Take 3,000 mg by mouth daily Active testosterone enanthate 200 mg/mL injection Inject 1 mL (200 mg total) into the muscle as instructed every 7 days 10/09/19 23 Active jrcwqaay-cqh-j sfdxna-B-upzf5 28 (Alive Men's 50 Plus Ultra) 800 [...] 90 tablet 3 12/24/19 24 025 Active Xarelto 20 mg tablet TAKE 1 TABLET BY MOUTH DAILY WITH DINNER 90 tablet 3 10/04/19 25 Active metoprolol XL (TOPROL-XL) 50 mg extended release tablet TAKE 1 TABLET BY MOUTH DAILY 90 tablet 3 10/11/19 25 Active metoprolol XL (TOPROL-XL) 50 mg extended release tablet Take 1 tablet (50 mg total) by mouth daily 90 tablet 1 03/22/19 25 025 Discontinued Active Problems Problem Noted Date Diagnosed Date Bilateral arm numbness and tingling while sleepi ng 05/03/2024 Chronic anticoagulation 02/04/2023 Palpitations 12/22/2022 S/P percutaneous patent foramen ovale closure Paroxysmal atrial fibrillation 12/22/2022 PFO (patent foramen ovale) 08/22/2022 H/O: CVA (cerebrovascular accident) 08/22/2022 Statin myopathy 08/22/2022 Mixed hyperlipidemia 08/22/2022 Hypogonadism in male 08/22/2022 Pituitary neoplasm 10/17/2010 Immunizations Immunization Administration Dates Next Due [employer] SARS-CoV-2 Monovalent Vaccination (12+ Yrs) PURPLE 07/13/2020,06/18/2020 [...] on file Legal Sex Male 3:53 AM COMMAND CENTER ANALYST Gender Identity Male 09/03/2020 8:31 AM CDT Sexual Orientation Straight 09/03/2020 8: 31 AM CDT Obstetrics History Last Filed Vital Signs Vital Sign Reading Time Taken Comments Blood Pressure 112/72 05/03/2024 9:38 AM COMMAND CENTER ANALYST Pulse 64 05/03/2024 9:38 AM COMMAND CENTER ANALYST Temperature 36.6 C (97.9 F) 12/05/2022 7:35 AM CDT Respiratory Rate 16 01/20/2023 7:46 AM COMMAND CENTER ANALYST Oxygen Saturation 96% 05/03/2024 9:38 AM COMMAND CENTER ANALYST Inhaled Oxygen Concentration - - Weight 91.2 kg (201 lb) 05/03/2024 9:38 AM COMMAND CENTER ANALYST Height 172.7 cm (5' 8) 05/03/2024 9:38 AM COMMAND CENTER ANALYST Body Mass Index 30.56 05/03/2024 9:38 AM COMMAND CENTER ANALYST Plan of Treatment Health Maintenance Due Date [...] this topic Medical Devices Implanted Type Area Lapel Baster Device Identifier Shelf Expiration Date Model / Serial / Lot Wl [employer] Hecker 30mm Soft Wire Frame Fluoroscopic Image Septal Occluder [id number] - [id number] - [id number] Implanted:Qty: 1 on 12/05/2022 by José Nance MD PhD at [facility] Septal Defect Closure Device N/A: Atrial Septal Defect Wl [employer] 06/07/2024 [id number] / [id number] / [id number] Insurance [facility] Address: [address] [address] [place] [address] [facility] Address: [address] [place] [address] [facility] Address: [facility] [address] [place] [address] Advance Directives For more information, please contact: [phone] * Full Code (Latest Code Status on File) Date Activated Date Inactivated Comments 09/03/2020 12:20 PM 09/03/2020 6:38 PM Care Teams Manager Voice Relationship Specialty Start Date End Date Christo García DO PCP - General Internal Medicine 07/25/20 Keyon Pham MD [address] [place] [address] Consulting Physician Otolaryngology 09/03/20 Alex Bustos MD [address] [place] [address] Consulting Physician Cardiology 10/07/22
--- OUTSIDE RECORDS SUMMARY | 2024-11-07 08:27 | XMS_ITS | Encounter Summary ---
Author Organization [facility] Address [address] [place] [address] Phone Care Team Providers Care Shear Assembler Name Role Phone Christo García DO Primary Care Provider [phone] Keyon Pham MD Unavailable [phone] Alex Bustos MD Unavailable [phone] Encounter Details Date Type Department Care Team [...] on file Legal Sex Male 3:53 AM HANGER OFF Gender Identity Male 09/03/2020 8:31 AM CDT [...] on filedocumented in this encounter Care Teams Shear Assembler Relationship Specialty Start Date End Date Christo García DO PCP - General Internal Medicine 07/25/20 Keyon Pham MD [address] [place] [address] Consulting Physician Otolaryngology 09/03/20 Alex Bustos MD [address] [place] [address] Consulting Physician Cardiology 10/07/22 documented as of this encounter
--- OUTSIDE RECORDS SUMMARY | 2024-11-07 08:27 | XMS_ITS | Clinical Summary ---
Author Organization [facility] Address [address] [place] [address] Care Team Providers Care Wool Spotter Name Role Phone MarilynChristo mallory Cuco Primary Care Provider Social History Tobacco Use Types Packs/Day Years Used Date Smoking Tobacco: Never Assessed Sex and Gender Information Value Date Recorded Sex Assigned at Not on file Legal Sex Male 8:48 AM CLEARANCE REP Gender Identity Not on file Sexual Orientation [...] 2023, 06/18/2020 INFLUENZA VACCINE (#1) 2024 Insurance [facility] OPTIONS PPO [id number] Care Teams Wool Spotter Relationship Specialty Start Date End Date Christo García DO [address] [facility] [address] [place] [address] PCP - General Internal Medicine 05/17/19
--- OUTSIDE RECORDS SUMMARY | 2024-11-07 08:27 | XMS_ITS | Encounter Summary ---
Author Organization [facility] Address [address] [place] [address] Phone Care Team Providers Care Keno Manager Name Role Phone Christo García DO Primary Care Provider [phone] Keyon Pham MD Unavailable [phone] Alex Bustos MD Unavailable [phone] Encounter Details Date Type Department Care Team [...] on file Legal Sex Male 3:53 AM MARINATOR Gender Identity Male 09/03/2020 8:31 AM CDT [...] on filedocumented in this encounter Care Teams Keno Manager Relationship Specialty Start Date End Date Christo García DO PCP - General Internal Medicine 07/25/20 Keyon Pham MD [address] [place] [address] Consulting Physician Otolaryngology 09/03/20 Alex Bustos MD [address] [place] [address] Consulting Physician Cardiology 10/07/22 documented as of this encounter
[2024-11-07 15:17] LABS: Cholesterol 211 mg/dL (0-200); HDL Direct 43 mg/dL; Triglycerides 88 mg/dL (<150)
[2024-11-07 15:48] LABS: Iron 150 ug/dL (49-181)
[2024-11-07 16:07] LABS: Percent Iron Saturation 57 % (20-50)
[2024-11-07 16:19] LABS: Hepatitis B Surface Antigen Negative (Negative)
[2024-11-07 16:32] LABS: Ferritin 96.10 ng/mL (11.1-264)
[2024-11-09 05:08] LABS: Deamidated Gliadin Abs, IgA 8 units (0-19); Deamidated Gliadin Abs, IgG 2 units (0-19); Immunoglobulin A, Qn 121 mg/dL (90-386)
== END 2024-11-07 08:16 | disposition home or self-care (01) ==
LOC: ANHGOSHLAB 08:16
PROVIDERS: PCP Internal Medicine; Visit Provider Internal Medicine
DX: E78.5 Hyperlipidemia, unspecified (principal); R74.01 Elevation of levels of liver transaminase levels
CPT/HCPCS: 36415; 80061; 82728; 82784; 83540; 83550; 86231; 86258; 86803; 87340

== ENCOUNTER 2024-11-30 09:13 | Outpatient (CLI) | payer OTHER, SELFPAY ==
--- OUTSIDE RECORDS SUMMARY | 2024-11-30 10:00 | XMS_ITS | Encounter Summary ---
Author Organization [facility] Address [address] [place] [address] Phone Care Team Providers Care Setter Molding And Coremaking Machines Name Role Phone Christo García DO Primary Care Provider [phone] Keyon Pham MD Unavailable [phone] Alex Bustos MD Unavailable [phone] Encounter Details Date Type Department Care Team [...] on file Legal Sex Male 3:53 AM SUPERVISOR INSTANT POTATO PROCESSING Gender Identity Male 09/03/2020 8:31 AM CDT [...] on filedocumented in this encounter Care Teams Setter Molding And Coremaking Machines Relationship Specialty Start Date End Date Christo García DO PCP - General Internal Medicine 07/25/20 Keyon Pham MD [address] [place] [address] Consulting Physician Otolaryngology 09/03/20 Alex Bustos MD [address] [place] [address] Consulting Physician Cardiology 10/07/22 11/07/24 documented as of this encounter
--- OUTSIDE RECORDS SUMMARY | 2024-11-30 10:00 | XMS_ITS | Clinical Summary ---
Author Organization [employer] Address [address] [place] [address] Care Team Providers Care Med Specialist Name Role Phone MarilynChristo mallory Cuco Primary Care Provider Social History Tobacco Use Types Packs/Day Years Used Date Smoking Tobacco: Never Assessed Sex and Gender Information Value Date Recorded Sex Assigned at Not on file Legal Sex Male 8:48 AM TRAVEL SERVICE CONSULTANT Gender Identity Not on file Sexual Orientation [...] (1 of 2) 2018 INFLUENZA VACCINE (#1) 2024 COVID-19 Vaccine (2024- season) 2024, 06/18/2020 Insurance [facility] OPTIONS PPO [id number] Care Teams Med Specialist Relationship Specialty Start Date End Date Christo García DO [address] [facility] [address] [place] [address] PCP - General Internal Medicine 05/17/19
--- OUTSIDE RECORDS SUMMARY | 2024-11-30 10:00 | XMS_ITS | Clinical Summary ---
Author Organization [facility] [[email or web address]] [address] [employer] Address [address] [place] [address] Care Team Providers Care Insurance Claims Analyst Name Role Phone Christo García DO Primary Care Provider [phone] Keyon Pham MD Unavailable [phone] Allergies Active Allergy Reactions Criticality Noted Date Comments Oytpsnk-Pnl-Bwn Reductase Inhibitors Other (See comments) 11/07/2024 Elevated LFTs Medications clonazePAM (KlonoPIN) 1 mg tablet Take 1.5 tablets (1.5 mg total) by mouth nightly 1 Active testosterone enanthate 200 mg/mL injection Inject 1 mL (200 mg total) into the muscle as instructed every 7 days 3 Active qlopqbhw-dga-r hiugde-B-snma6 28 (Alive Men's 50 Plus Ultra) 800 mcg DFE- 120 mcg tablet 1 Active BD Luer-Anders Syringe 3 mL 21 gauge x 1 syringe USE TO INJECT TESTOSTERONE ONCE WEEKLY 3 Active cholecalcifero l (VITAMIN D-3) 2000 unit capsule 1 capsule (2,000 Units total) daily Active Xarelto 20 mg tablet TAKE 1 TABLET BY MOUTH DAILY WITH DINNER 90 tablet 3 5 Active metoprolol XL (TOPROL-XL) 50 mg extended release tablet TAKE 1 TABLET BY MOUTH DAILY 90 tablet 3 5 Active fish oil-E-fatty acid5-khnw719 400-5 mg-unit capsule Take 3,000 mg by mouth daily 025 Discontin ued(Thera py completed ) rosuvastatin (CRESTOR) 5 mg tablet Take 1 tablet (5 mg total) by mouth daily 90 tablet 3 4 025 Discontin ued(Thera py completed ) Active Problems Problem Noted Date Diagnosed Date Allergy to statin medication 11/07/2024 Bilateral arm numbness and tingling while sleepi ng 05/03/2024 Chronic anticoagulation 02/04/2023 Palpitations 12/22/2022 S/P percutaneous patent foramen ovale closure Paroxysmal atrial fibrillation 12/22/2022 PFO (patent foramen ovale) 08/22/2022 H/O: CVA (cerebrovascular accident) 08/22/2022 Statin myopathy 08/22/2022 Mixed hyperlipidemia 08/22/2022 Hypogonadism in male 08/22/2022 Pituitary neoplasm 10/17/2010 Encounters Date Type Department Care Team Description 11/07/2024 8:45 AM CDT Office Visit [facility] Cardiology [address] [place] [address] Wily Banuelos MD Paroxysmal atrial fibrillation (HCC) (Primary Dx); Mixed hyperlipidemia; S/P percutaneous patent foramen ovale closure; Chronic anticoagulation; H/O: CVA (cerebrovascular accident); Allergy to statin medication from Last 3 Months Immunizations Immunization Administration Dates Next Due Pfizer SARS-CoV-2 Monovalent Vaccination (12+ Yrs) PURPLE 07/13/2020,06/18/2020 Surgical History Surgery Date Site/Laterality Comments MANDIBLE FRACTURE SURGERY 02/14/1992 - 03/15/1992 reconstructive for misaligned teeth WISDOM TOOTH EXTRACTION NASAL SEPTOPLASTY W/ TURBINOPLASTY 09/03/2020 SHOULDER SURGERY 03/16/2020 - 03/15/2021 Right VASECTOMY 2005 Medical History Medical History Date Comments Sinusitis [...] on file Legal Sex Male 3:53 AM ORDER TRACER Gender Identity Male 09/03/2020 8:31 AM CDT Sexual Orientation Straight 09/03/2020 8: 31 AM CDT Obstetrics History Last Filed Vital Signs Vital Sign Reading Time Taken Comments Blood Pressure 94/60 11/07/2024 9:04 AM CDT Pulse 61 11/07/2024 9:04 AM CDT Temperature 36.6 C (97.9 F) 12/05/2022 7:35 AM CDT Respiratory Rate 16 01/20/2023 7:46 AM ORDER TRACER Oxygen Saturation 97% 11/07/2024 9:04 AM CDT Inhaled Oxygen Concentration - - Weight 89.8 kg (198 lb) 11/07/2024 9:04 AM CDT Height 172.7 cm (5' 8) 11/07/2024 9:04 AM CDT Body Mass Index 30.11 11/07/2024 9:04 AM CDT Plan of Treatment Health Maintenance Due Date Last Done Comments Colon Cancer Screening-Colonoscopy 1968 Depression Screening 1968 Hepatitis C Screening 1968 Prostate Cancer Screening-PSA 1968 Hepatitis B Screening 1986 Regular Well Visit/Exam 18-64 1986 Zoster Vaccine (1 of 2) 2018 Covid-19 Vaccine (3 - 2024-2 6 season) 2024 07/13/2020, 06/18/2020 Influenza Vaccine (#1) 2024 DTaP/Tdap/Td Vaccine (2 - Td or Tdap) 05/03/2029 05/03/2019 Pneumococcal vaccine <65 Aged Out No longer eligible based on patient's age to complete this topic Medical Devices Implanted Type Area Repair Supervisor Device Identifier Shelf Expiration Date Model / Serial / Lot [employer] Aquilla 30mm Soft Wire Frame Fluoroscopic Image Septal Occluder [id number] - [id number] - [id number] Implanted:Qty: 1 on 12/05/2022 by José Nance MD PhD at [facility] Septal Defect Closure Device N/A: Atrial Septal Defect [employer] 06/07/2024 [id number] / [id number] / [id number] Procedures Procedure Name Priority Date/Time Associated Diagnosis Comments POCT LIPID PANEL Routine 11/07/2024 9:05 AM CDT Mixed hyperlipidemia H/O: CVA (cerebrovascular accident) from Last 3 Months Results * POCT lipid panel (11/07/2024 9:05 AM CDT) Cholesterol, POC 195 <200 MG/DL HDL, POC 45 >=40 mg/dL Triglycerides, POC 123 <=149 mg/dL LDL Cholesterol POC 126 <=129 mg/dL Chol/HDL Ratio, POC 2.8 NONE Non-HDL Cholesterol, POC 150 NONE mg/dL Cholesterol Total, POC 195 30 - 199 mg/dL Capillary blood 11/07/2024 9 :05 AM CDT Wily Banuelos MD POINT OF CARE TEST ORDERA BLES Final Result from Last 3 Months Insurance [facility] CHOICE PLUS [facility] HMO/PPO Address: [address] [place] [address] [facility] HMO/PPO Address: [address] [address] [place] [address] [facility] HMO/PPO Address: [address] [place] [address] Advance Directives For more information, please contact: [phone] * Full Code (Latest Code Status on File) Date Activated Date Inactivated Comments 09/03/2020 12:20 PM 09/03/2020 6:38 PM Care Teams Insurance Claims Analyst Relationship Specialty Start Date End Date Christo García DO PCP - General Internal Medicine 07/25/20 Keyon Pham MD [address] [place] [address] Consulting Physician Otolaryngology 09/03/20
--- OUTSIDE RECORDS SUMMARY | 2024-11-30 10:00 | XMS_ITS | Encounter Summary ---
Author Organization [facility] Address [address] [place] [address] Phone Care Team Providers Care Motel Clerk Name Role Phone Christo García DO Primary Care Provider [phone] Keyon Pham MD Unavailable [phone] Alex Bustos MD Unavailable [phone] Encounter Details Date Type Department Care Team [...] on file Legal Sex Male 3:53 AM BRAKE ADJUSTER Gender Identity Male 09/03/2020 8:31 AM CDT [...] on filedocumented in this encounter Care Teams Motel Clerk Relationship Specialty Start Date End Date Christo García DO PCP - General Internal Medicine 07/25/20 Keyon Pham MD [address] [place] [address] Consulting Physician Otolaryngology 09/03/20 Alex Bustos MD [address] [place] [address] Consulting Physician Cardiology 10/07/22 11/07/24 documented as of this encounter
== END 2024-11-30 09:14 | disposition home or self-care (01) ==
LOC: ANHGOSHLAB 09:14
PROVIDERS: PCP Internal Medicine; Visit Provider Internal Medicine
DX: R74.01 Elevation of levels of liver transaminase levels (principal); R79.0 Abnormal level of blood mineral
CPT/HCPCS: 81256

== ENCOUNTER 2024-12-12 08:55 | Outpatient (CLI) | payer OTHER, SELFPAY ==
--- OUTSIDE RECORDS SUMMARY | 2024-12-12 09:19 | XMS_ITS | Clinical Summary ---
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
--- OUTSIDE RECORDS SUMMARY | 2024-12-12 09:19 | XMS_ITS | Encounter Summary ---
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
--- OUTSIDE RECORDS SUMMARY | 2024-12-12 09:19 | XMS_ITS | Data Portability ---
Author Organization [employer], [facility] Address [address] [facility] [address] [place] [address] Care Team Providers Care Software Support Engineer Name Role Phone TOMA GRIER Primary Care Provider Unavailab le TOMA GRIER Primary Care Provider [phone] Assessment No assessment recorded. Plan of Treatment [...] 8 [place] [address] [place] [address], [id number], [employer] 06/04/2017 13:22:25 7 [place] [address] [address] [facility] [address], [place], [address], [employer] [facility], [employer] 03/05/2017 16:56:00 Imaging Results None recorded. Procedure [...] Updated DateTime 05/21/2017 172.72 cm 29.6 kg/m2 14802.51 g 55 /min 123/78 mm[Hg] Camille Pelayo [facility] [employer] [facility], [employer] 05/21/2017 12:30:00 Date Recorded Body height Body mass index (BMI) Body weight Heart rate Systolic And Diastolic Provider Name and Address Organization Details Last Updated DateTime 06/04/2017 172.72 cm 29.6 kg/m2 30379.51 g 68 /min 127/82 mm[Hg] Amber Croft [facility] [employer] 06/04/2017 11:19:50 Date Recorded Body height Body mass index (BMI) Body weight Heart rate Systolic And Diastolic Provider Name and Address Organization Details Last Updated DateTime 08/04/2017 172.72 cm 29.6 kg/m2 89238.51 g 74 /min 132/77 mm[Hg] Bernard Moore [facility] [employer] [facility], [employer] 08/04/2017 10:32:40 Date Recorded Body height Body mass index (BMI) Body weight Systolic And Diastolic Provider Name and Address Organization Details Last Updated DateTime 10/10/2020 172.72 cm 29.3 kg/m2 94297.33 g 132/77 mm[Hg] Berta Dow [employer] 10/10/2020 16:29:07 Date Recorded Body height Body mass index (BMI) Body weight Provider Name and Address Organization Details Last Updated DateTime 01/09/2021 172.72 cm 28.6 kg/m2 83676.37 g Zunilda Roper [employer] 01/09/2021 12:14:37 Social History Question Answer Notes LastModified by Organizat ion Details LastModified Time Tobacco Smoking Status Never Smoker Nevaeh Merary chacon [employer] 02/25/2017 12:08:09 What Was The Date Of Your Most Recent Tobacco Screening? 08/04/2017 Information n ot available 10/07/2018 Sex: Unknown Functional Status None recorded. Mental Status None recorded. Family History Nothing Reported. Medical History Condition Response Coronary Artery Disease N HIV or AIDS N Gout N Kidney Stones N Hyperthyroidism N Head Trauma/Injury N Hernia N Hypothyroidism N Depression N COPD N Blood Clots N Lung Disease N Pacemaker N Anxiety Disorder N Arthritis N Cancer N Stroke N Neck Injury N Leg or Foot Ulcers N High Cholesterol N Liver Disease N Rheumatoid Arthritis N Headaches N Fibromyalgia N Kidney Disease N Heart Problems N Migraines N Thyroid Problems N Anemia N Multiple Sclerosis N Ulcers N Heart Attack ([place]) N Diabetes N Bleeding Disorder N Seizures/Epilepsy [...] Diagnosis SNOMED-CT Code Diagnosis ICD10 Code Diagnosis IMO Codes Diagnosis Note [id number] Wily Gross MD [facility] [address] [facility] [address] [place] [address] 02/25/2017 11:37:09 02/25/2017 14:15:59 Knee pain 03521734 M25.561 Pain of elbow region 745 [address]402 M25.521 Lateral epicondylitis 20 6731312 M77.11 [id number] Wily Gross MD [facility] [address] [place] [address] 03/05/2017 10:51:43 03/05/2017 14:10:59 Osteoarthritis of knee 418488423 M17.0 Strain of muscle and/or tendon of elbow region 520582077 S56.911D [id number] Wily Gross MD [facility] [address] [place] [address] 04/17/2017 09:52:01 04/17/2017 14:44:26 [id number] Wily Gross MD [facility] [address] [place]ch [address] 05/21/2017 12:22:09 05/22/2017 10:18:46 [id number] Wily Gross MD [facility] [address] [place] [address] 06/04/2017 10:58:10 06/04/2017 16:21:26 [id number] Wily Gross MD [facility] [address] [place] Birch [address] 08/04/2017 10:23:44 08/04/2017 15:57:04 Knee pain 31155733 M25.561 Lateral epicondylitis 20 5748927 M77.11 [id number] Wily Gross MD [facility] [address] [place] [address] 10/10/2020 16:03:31 10/11/2020 09:21:42 Pain of shoulder region 60793715 M25.511 [id number] Wily Gross MD [facility] [address] [place] [address] 01/09/2021 12:05:32 01/09/2021 15:20:20 Pain of shoulder region 15632690 M25.511 Health Concerns Section Related Observation LastModified by Organization Detai ls LastModified Time None Recorded Concern Status LastModified by Organization Details LastModified Time None Recorded Advance Directives Directive None Recorded Payers Insurance Date Sequence Insurance Name Policy Number Policy Chung Covered Member ID Chung Member ID Guarantor Name 01/08/2021 1 [facility] [id number] Linwood Persaud [id number] Linwood Persaud
--- OUTSIDE RECORDS SUMMARY | 2024-12-12 09:19 | XMS_ITS | Encounter Summary ---
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
--- OUTSIDE RECORDS SUMMARY | 2024-12-12 09:19 | XMS_ITS | Clinical Summary ---
Author Organization [facility] [address] [employer] Address [address] [email or web address] [address] Care Team Providers Care Software Test Technician Name Role Phone Christo García DO Primary Care Provider [phone]- [phone] Keyon Pham MD Unavailable [phone] Allergies Active Allergy Reactions Criticality Noted Date Comments Iilqbxx-Ovo-Qhq Reductase Inhibitors Other (See comments) 11/07/2024 Elevated LFTs Medications clonazePAM (KlonoPIN) 1 mg tablet Take 1.5 tablets (1.5 mg total) by mouth nightly 1 Active testosterone enanthate 200 mg/mL injection Inject 1 mL (200 mg total) into the muscle as instructed every 7 days 3 Active dbruirma-hxz-mg tzyfy-X-cadh716 (Alive Men's 50 Plus Ultra) 800 mcg [...] MOUTH DAILY 90 tablet 3 5 Active Active Problems Problem Noted Date [...] Description 11/07/2024 8:45 AM CDT Office Visit [facility] Cardiology [address] [place] [address] Wily Banuelos MD Paroxysmal atrial [...] on file Legal 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 Gender Identity Male 09/03/2020 8:31 AM CDT Sexual Orientation Straight 09/03/2020 8: 31 AM CDT Obstetrics History Last Filed Vital Signs Vital Sign Reading Time Taken Comments Blood Pressure 94/60 11/07/2024 9:04 AM CDT Pulse 61 11/07/2024 9:04 AM CDT Temperature 36.6 C (97.9 F) 12/05/2022 7:35 AM CDT Respiratory Rate 16 01/20/2023 7:46 AM PHYSICAL EDUCATION AIDE Oxygen Saturation 97% 11/07/2024 9:04 AM CDT [...] this topic Medical Devices Implanted Type Area Taxi Dancer Device Identifier Shelf Expiration Date Model / Serial / Lot [employer] 30mm Soft Wire Frame Fluoroscopic Image Septal Occluder [id number] - [id number] - [id number] Implanted:Qty: 1 on 12/05/2022 by José Nance MD PhD at [facility] Septal Defect Closure Device N/A: Atrial Septal Defect [employer] 06/07/2024 [id number] / [id number] / [id number] Procedures Procedure Name Priority Date/Time Associated Diagnosis [...] Capillary blood 11/07/2024 9 :05 AM CDT us Wily Banuelos MD POINT OF CARE TEST ORDERA BLES Final Result from Last 3 Months Insurance [facility] CHOICE PLUS [facility] CHO[facility] PLUS [facility] CHO[facility] PLUS Advance Directives For more information, please contact: [phone] * Full Code (Latest Code Status on File) Date Activated Date Inactivated Comments 09/03/2020 12:20 PM 09/03/2020 6:38 PM Care Teams Software Test Technician Relationship Specialty Start Date End Date Christo García DO PCP - General Internal Medicine 07/25/20 Keyon Pham MD [address] [place] [address] Consulting Physician Otolaryngology 09/03/20
[2024-12-12 13:05] LABS: Alanine Aminotransferase 28 U/L (6-50); Albumin Level 4.1 g/dL (3.5-5.1); Alkaline Phosphatase 54 U/L (38-126); Aspartate Amino Transferase 52 U/L (17-59); Bilirubin,Total 0.6 mg/dL (0.2-1.3); Total Protein 6.9 g/dL (6.3-8.2)
== END 2024-12-12 08:56 | disposition home or self-care (01) ==
LOC: ANHGOSHLAB 08:56
PROVIDERS: PCP Internal Medicine; Visit Provider Internal Medicine
DX: R74.01 Elevation of levels of liver transaminase levels (principal)
CPT/HCPCS: 36415; 80076

== ENCOUNTER 2025-01-30 08:22 | Outpatient (CLI) | payer OTHER, SELFPAY ==
[2025-01-30 13:03] LABS: Hematocrit 46.2 % (42.0-52.0); Hemoglobin 15.8 g/dL (14.0-18.0); Immature Granulocyte Percent A 0.0 % (0-0.5); Lymphocytes Absolute Auto 1.53 K/mm3 (0.9-3.2); Mean Corpuscular HGB Conc 34.2 g/dl (32-36); Mean Corpuscular Hemoglobin 31.3 pg (26-34); Mean Corpuscular Volume 91.5 fl (80-100); Nucleated Red Blood Cells Absolute Auto 0.000 K/mm3 (0.0-0.012); Nucleated Red Blood Cells Perc 0.0 % (0.0-0.2); Platelet Count Result 237 k/mm3 (150-375); Red Blood Count 5.05 M/mm3 (4.6-6.20); White Blood Count 4.3 K/mm3 (4.5-10.0)
[2025-01-30 13:14] LABS: Alanine Aminotransferase 29 U/L (6-50); Albumin Level 4.1 g/dL (3.5-5.1); Alkaline Phosphatase 57 U/L (38-126); Anion Gap 6 mmol/L (4-12); Aspartate Amino Transferase 61 U/L (17-59); Bilirubin,Total 0.8 mg/dL (0.2-1.3); Blood Urea Nitrogen 26 mg/dL (9-20); Calcium 9.1 mg/dL (8.4-10.2); Carbon Dioxide 30 mmol/L (22-30); Chloride 99 mmol/L (98-107); Cholesterol 183 mg/dL (0-200); Estimated Glomerular Filt Rate 54; Glucose 79 mg/dL (65-110); HDL Direct 43 mg/dL; Potassium 4.3 mmol/L (3.4-5.0); Sodium 135 mmol/L (137-145); Total Protein 7.1 g/dL (6.3-8.2); Triglycerides 92 mg/dL (<150)
[2025-01-30 13:53] LABS: Prostate Specific Antigen 1.2 ng/mL (< OR = 4.0)
[2025-02-01 09:08] LABS: Free Testosterone (Direct) 15.5 pg/mL (7.2-24.0)
== END 2025-01-30 08:23 | disposition home or self-care (01) ==
LOC: ANHGOSHLAB 08:23
PROVIDERS: PCP Internal Medicine; Visit Provider Internal Medicine
DX: I48.91 Unspecified atrial fibrillation (principal); I48.92 Unspecified atrial flutter; Z86.73 Personal history of transient ischemic attack (TIA), and cerebral infarction without residual deficits; Z13.228 Encounter for screening for other metabolic disorders; Z12.5 Encounter for screening for malignant neoplasm of prostate; Z79.890 Hormone replacement therapy; E78.5 Hyperlipidemia, unspecified
CPT/HCPCS: 36415; 80053; 80061; 84153; 84402; 84403; 85025; G0103